=== PATIENT | female | born 1965 | race Caucasian/White ===

== ENCOUNTER 2022-05-22 15:52 | Outpatient (REF) | payer OTHER, SELFPAY ==
--- NOTE | ~2022-05-22 | MM_ITS ---
EXAMINATION: MM SCREENING DIGITAL BREAST TOMOSYNTHESIS, BILATERAL CLINICAL INFORMATION: Screening. Asymptomatic. The lifetime risk of breast cancer based on the Tyrer-Cuzick Model is 6%. COMPARISON: Mammography: 05/27/2020, 03/17/2019, 09/15/2016 TECHNIQUE: Digital breast tomosynthesis is performed in both the craniocaudal and mediolateral oblique views along with computer-aided detection (CAD). Synthesized 2D images are generated from the tomosynthesis. FINDINGS: There are scattered areas of fibroglandular density (ACR BI-RADS breast composition Category b). There are no significant masses, abnormal calcifications, or other abnormalities. Parenchymal pattern is similar to prior studies. There is no developing density or architectural abnormality. The axilla and skin contours are unremarkable. No significant changes. MM/MM tomosynthesis screening BI IMPRESSION: No mammographic evidence of malignancy. ASSESSMENT: BI-RADS 1: Negative RECOMMENDATION: Routine annual mammography screening. This patient's information was entered into a reminder system with a target due date for their next mammogram.
== END 2022-05-22 15:53 | disposition home or self-care (01) ==
LOC: HO.MAMMO 15:52
PROVIDERS: Visit Provider Internal Medicine
DX: Z12.31 Encounter for screening mammogram for malignant neoplasm of breast (principal)
CPT/HCPCS: 77063; 77067

== ENCOUNTER 2023-05-28 15:48 | Outpatient (REF) | payer OTHER, SELFPAY | END 2023-05-28 15:49 | disposition home or self-care (01) | LOC: HO.MAMMO 15:48 | PROVIDERS: PCP Internal Medicine; Visit Provider Internal Medicine | DX: Z12.31 Encounter for screening mammogram for malignant neoplasm of breast (principal) | CPT/HCPCS: 77063; 77067 ==

== ENCOUNTER → 2023-05-28 16:00 | Outpatient (BNV) | payer OTHER, SELFPAY | PROVIDERS: PCP Internal Medicine; Visit Provider Radiology Diagnostic Radiology | DX: Z12.31 Encounter for screening mammogram for malignant neoplasm of breast (principal) | CPT/HCPCS: 77063; 77067 ==

== ENCOUNTER 2024-02-28 15:34 | Outpatient (AMB) | payer OTHER, SELFPAY ==
--- NOTE | 2024-02-28 15:42 | A.OFFPC_ITS ---
Vital Signs 02/28/24 15:44 Height 5 ft 8 in Weight 200 lb 8 oz BMI 30.5 BP 120/64 Blood Pressure Location Lt brachial Position Sitting Pulse 65 Pulse Source Pulse Oximeter Pulse Oximetry (%) 97 Oxygen Delivery Method Room Air Intake Visit Reasons: PE - see comments Intake Note: Patient is here today for a physical. Telephone Order Clerk Room Service Required: No Box Office Manager: Not Required per policy Accompanied by: Self / Same As Patient Allergies No Known Allergies Allergy (Verified 02/29/24 10:31) Medication List - Last Reconciled 02/29/24 by Lan Hooper MD bupropion HCl XL (Wellbutrin XL) 150 mg PO QAM Tobacco use date assessed: 02/28/24 Dental Screening Dental Screen Date: 02/28/24 Did you have a dental visit in the last 12 months?: Yes Did you have a dental problem in the last 6 months where you did not have access to dental care?: No Was dental information given to patient?: Patient has dentist HPI PE - see comments HPI Details 59-year-old female presents to the offic e to establish her care and request a physical. In addition patient is complaining of depression. She has history of depression and was taking Wellbutrin 20 years ago. She has not been on any medications since. Recently she is involved in the care of her sister was been diagnosed with cirrhosis of the liver. Patient reports poor sleep patterns, frequent crying episodes. Patient also has a history of aortic regurgitation. [facility] Medical History (Updated 02/29/24 @ 10:30 by Lan Hooper MD) Endogenous depression Aortic regurgitation Surgical History No pertinent past surgical history Family History Other Mental health disorder Substance use disorder Social History Housing: House Alcohol intake: current Alcohol intake frequency: a few times a month Patient Tobacco Use Status: Former Tobacco user Tobacco use type: Cigarette e-Cigarette/Vaping Use: Never Used Second Hand Smoke Exposure: No service: No Current occupational status: employed Cognitive needs: No Hearing needs: No Vision needs: Yes (Glasses) Questionnaire PHQ-9 Over the last 2 weeks, how often have you been bothered by any of the following problems? 1. Little interest or pleasure in doing things: several days 2. Feeling down, depressed, or hopeless: several days 3. Trouble falling or staying asleep, or sleeping too much: several days 4. Feeling tired or having little energy: nearly every day 5. Poor appetite or overeating: several days 6. Feeling bad about yourself - or that you are a failure or have let yourself or your family down: not at all 7. Trouble concentrating on things, such as reading the newspaper or watching television: several days 8. Moving or speaking so slowly that other people could have noticed. Or the opposite - being so fidgety or restless that you have been moving around a lot more than usual: not at all 9. Thoughts that you would be better off or of hurting yourself in some way: not at all Total score: 8 Depression Screening Interpretation: Positive Depression Screening Follow-up: New Medication prescribed Depression Screening Done: Yes Source: Developed by Drs. Alvin Tran, Kaylee Tran, Kvng Norman and colleagues, with an educational tasneem from [employer]. Thrive Questionnaire Date Thrive assessed: 02/28/24 I am a: Patient What is your living situation today?: I have a steady place to live Within the past 12 months, did the food you bought not last and you didn't have the money to get more?: Never true Within the past 12 months, did you worry whether your food would run out before you got money to buy more?: Never true Do you have trouble paying for medicines?: No Do you have trouble getting transportation to medical appointments?: No Do you have trouble paying your heating and electricity bill?: No Do you have trouble taking care of your child, family member or friend?: No Do you have trouble with day-to-day activities such as bathing, preparing meals, shopping, managing finances, etc.?: No Are you currently unemployed and looking for a job?: No Are you interested in more education?: No Currently or been in a relationship where the following occur: no concerns reported THRIVE Score: 0 AUDIT C Alcohol Use Questionnaire (AUDIT-C) 1. How often do you have a drink containing alcohol?: Monthly or less 2. How many drinks containing alcohol do you have on a typical day when you are drinking?: 1 or 2 Total Score: 1 GERMAN-7 AMB Questionnaire GERMAN-7 Date GERMAN - 7 assessed: 02/28/24 Feeling nervous, anxious, or on edge: 1 = Several days Not being able to stop or control worryin = Not at all Worrying too much about different things: 0 = Not at all Trouble relaxin = Several days Being so restless that it is hard to sit still: 0 = Not at all Becoming easily annoyed or irritable: 1 = Several days Feeling afraid as if something awful might happen: 1 = Several days Total GERMAN-7 score (0-4 normal; 5-9 mild; 10-14 moderate; 15-21 severe): 4 Source: Developed by Drs. Alvin Tran, Kaylee Tran, Kvng Norman and colleagues, with an educational tasneem from [employer]. Physical exam (Primary Care) Vital Signs: Last Vital Signs Pulse 65 02/28/24 15:44 BP 120/64 02/28/24 15:44 Pulse Ox 97 02/28/24 15:44 Oxygen Delivery Method Room Air 02/28/24 15:44 Care Plan Goal for BP management: Blood pressure is in goal. BMI result Body Mass Index 30.5 BMI Assessment/Plan discussion: High (1 lb a week weight loss suggested.) BMI High, discussed plan: lifestyle, weight reduction, dietary and physical activity Tobacco/Smoking Status: Tobacco use Status Tobacco use date assessed 02/28/24 02/28/24 15:51 Patient Tobacco Use Status Former Tobacco user 02/28/24 15:51 Tobacco use type Cigarette 02/28/24 15:51 e-Cigarette/Vaping Use Never Used 02/28/24 15:51 PHQ-9: PHQ-9 Score PHQ-9: Total score 8 02/28/24 15:51 Depression Screening Interpretation: Positive Depression Screening Follow-up: New Medication prescribed Thrive Assessment: Date of Thrive Assessment Date Thrive assessed 02/28/24 02/28/24 15:51 Currently or been in a relationship where the following occur: no concerns reported Const General: cooperative and healthy appearing Nutritional Appearance: well nourished Orientation/consciousness: patient oriented x3 Limitations: no limitations HENMT Head: Yes normal to inspection Eyes General: appearance normal, both eyes and all related structures Neck Neck: Yes normal visual inspection Chest Chest palpation & inspection: normal palpation of entire chest wall Resp Effort & Inspection: normal respiratory effort Neuro General: patient oriented x3 Assessment and Plan Assessment & Plan (1) Endogenous depression: Code(s): F33.2 - Major depressive disorder, recurrent severe without psychotic features Plan: Wellbutrin has been started. Thirty day supply given. Patient would be followed up to monitor her response. (2) Aortic regurgitation: Code(s): I35.1 - Nonrheumatic aortic (valve) insufficiency (3) Annual physical exam: Code(s): Z00.00 - Encounter for general adult medical examination without abnormal findings Plan: Mammogram is being followed by her patient resource specialist. Routine blood work has been ordered. Orders: Orders Basic Metabolic Panel Today F33.2 - Major depressive disorder, recurrent severe without psychotic features Complete Blood Count no Diff Today F33.2 - Major depressive disorder, recurrent severe without psychotic features Lipid Panel Today F33.2 - Major depressive disorder, recurrent severe without psychotic features Liver Panel Today F33.2 - Major depressive disorder, recurrent severe without psychotic features UA and rflx microscopic Today F33.2 - Major depressive disorder, recurrent severe without psychotic features Thyroid Stimulating Hormone Today F33.2 - Major depressive disorder, recurrent severe without psychotic features Medications: New bupropion HCl XL (Wellbutrin XL) 150 mg PO QAM 30 tabs 0RF Coding Level of Care Code New Pt Level 3 (65699) New Pt Prev Care 40-64y(05313) Diagnoses Endogenous depression F33.2 Aortic regurgitation I35.1 Annual physical exam Z00.00
[2024-02-28 15:44] VITALS: BP 120/64; PULSE 65; O2SAT 97; BMI 30.5
== END 2024-02-28 16:47 | disposition home or self-care (01) ==
PROVIDERS: PCP Internal Medicine; Visit Provider Internal Medicine
DX: Z00.00 Encounter for general adult medical examination without abnormal findings (principal); F33.2 Major depressive disorder, recurrent severe without psychotic features; I35.1 Nonrheumatic aortic (valve) insufficiency
CPT/HCPCS: 99213; 99396

== ENCOUNTER 2024-03-24 08:00 | Outpatient (REF) | payer OTHER, SELFPAY ==
[2024-03-24 08:42] LABS: Hematocrit 42.2 % (37.0-47.0); Hemoglobin 14.1 g/dl (12.0-16.0); Mean Corpuscular HGB Conc 33.4 g/dl (31.0-35.0); Mean Corpuscular Hemoglobin 31.9 pg (27.0-33.0); Mean Corpuscular Volume 95.5 fL (80.0-98.0); Mean Platelet Volume 11.5 fL (9.4-12.3); Platelet Count 249 X10*3/uL (160-400); Red Blood Count 4.42 X10*6/uL (4.20-5.50); White Blood Count 5.8 X10*3/uL (4.8-10.8)
[2024-03-24 09:31] LABS: Alanine Aminotransferase 24 U/L (0-31); Albumin Level 4.1 g/dL (3.5-5.0); Alkaline Phosphatase 56 U/L (39-117); Anion Gap 17 (12-20); Aspartate Amino Transferase 25 U/L (5-31); Bilirubin Direct 0.2 mg/dL (0.0-0.5); Bilirubin Total 0.8 mg/dL (0.0-1.0); Blood Urea Nitrogen 28 mg/dL (9-16); Calcium 9.5 mg/dL (8.4-10.2); Carbon Dioxide 21 mmol/L (22-29); Chloride 109 mmol/L (96-108); Cholesterol 200 mg/dL (<200); Estimated Glomerular Filt Rate 56; Glucose Random 97 mg/dL (60-115); HDL Cholesterol 41 mg/dL (>40); LDL Cholesterol Calculated 137 mg/dL (<100); Potassium 4.5 mmol/L (3.3-5.1); Sodium 142 mmol/L (135-145); Total Protein 6.9 g/dL (6.5-8.0); Triglycerides 113 mg/dL (<150)
== END 2024-03-24 08:01 | disposition home or self-care (01) ==
LOC: HO.LAB 08:00
PROVIDERS: PCP Internal Medicine; Visit Provider Internal Medicine
DX: F33.2 Major depressive disorder, recurrent severe without psychotic features (principal)
CPT/HCPCS: 36415; 80048; 80061; 80076; 84443; 85027

== ENCOUNTER 2024-03-27 14:54 | Outpatient (AMB) | payer OTHER, SELFPAY ==
--- NOTE | 2024-03-27 15:21 | A.OFFPC_ITS ---
Vital Signs 03/27/24 15:22 Height 5 ft 8 in Weight 197 lb 8 oz BMI 30.0 BP 102/62 Blood Pressure Location Rt brachial Position Sitting Pulse 66 Pulse Source Pulse Oximeter Pulse Oximetry (%) 96 Oxygen Delivery Method Room Air Intake Visit Reasons: 4 week f/u Intake Note: Patient is here to follow up on Depression. Meter Changes Records Clerk Required: No Aerosol Line Operator: Not Required per policy Accompanied by: Self / Same As Patient Allergies No Known Allergies Allergy (Verified 03/27/24 15:22) Tobacco use date assessed: 03/27/24 Dental Screening Dental Screen Date: 02/28/24 HPI 4 week f/u HPI Details 59-year-old female presents to the [facility] for a follow-up visit. Patient has been taking Wellbutrin for the past month. She reports there is improvement in her symptoms. She feels that her mind is more calm and is able to take reasonable decisions. She does not feel agitated. Her sleep patterns have improved. Able to function at work better. Able to do all activities of daily living and including her interpersonal conversations. [facility] Medical History (Updated 02/29/24 @ 10:30 by Lan Hooper MD) Endogenous depression Aortic regurgitation Surgical History No pertinent past surgical history Family History Other Mental health disorder Substance use disorder Social History Housing: House Alcohol intake: current Alcohol intake frequency: a few times a month Patient Tobacco Use Status: Former Tobacco user Tobacco use type: Cigarette e-Cigarette/Vaping Use: Never Used Second Hand Smoke Exposure: No service: No Current occupational status: employed Cognitive needs: No Hearing needs: No Vision needs: Yes (Glasses) Questionnaire PHQ-9 Over the last 2 weeks, how often have you been bothered by any of the following problems? 1. Little interest or pleasure in doing things: not at all 2. Feeling down, depressed, or hopeless: several days (once a week) 3. Trouble falling or staying asleep, or sleeping too much: not at all 4. Feeling tired or having little energy: several days 5. Poor appetite or overeating: not at all 6. Feeling bad about yourself - or that you are a failure or have let yourself or your family down: not at all 7. Trouble concentrating on things, such as reading the newspaper or watching television: not at all 8. Moving or speaking so slowly that other people could have noticed. Or the opposite - being so fidgety or restless that you have been moving around a lot more than usual: not at all 9. Thoughts that you would be better off or of hurting yourself in some way: not at all Total score: 2 Depression Screening Interpretation: Positive Depression Screening Follow-up: Existing condition and In treatment Depression Screening Done: Yes Source: Developed by Drs. Alvin Tran, Kvng Candelaria and colleagues, with an educational tasneem from [employer]. Thrive Questionnaire Date Thrive assessed: 02/28/24 GERMAN-7 AMB Questionnaire GERMAN-7 Date GERMAN - 7 assessed: 03/27/24 Feeling nervous, anxious, or on edge: 1 = Several days (once or twice a week) Not being able to stop or control worryin = Not at all Worrying too much about different things: 0 = Not at all Trouble relaxin = Not at all Being so restless that it is hard to sit still: 0 = Not at all Becoming easily annoyed or irritable: 1 = Several days Feeling afraid as if something awful might happen: 0 = Not at all Total GERMAN-7 score (0-4 normal; 5-9 mild; 10-14 moderate; 15-21 severe): 2 Source: Developed by Drs. Alvin Tarn, Kvng Candelaria and colleagues, with an educational tasneem from [employer]. Physical exam (Primary Care) Vital Signs: Last Vital Signs Pulse 66 03/27/24 15:22 BP 102/62 03/27/24 15:22 Pulse Ox 96 03/27/24 15:22 Oxygen Delivery Method Room Air 03/27/24 15:22 Care Plan Goal for BP management: Blood pressure is stable. BMI result Body Mass Index 30.0 Tobacco/Smoking Status: Tobacco use Status Tobacco use date assessed 03/27/24 03/27/24 15:28 Patient Tobacco Use Status Former Tobacco user 03/27/24 15:28 Tobacco use type Cigarette 03/27/24 15:28 e-Cigarette/Vaping Use Never Used 03/27/24 15:28 PHQ-9: PHQ-9 Score PHQ-9: Total score 2 03/27/24 15:28 Depression Screening Interpretation: Positive Depression Screening Follow-up: Existing condition and In treatment Thrive Assessment: Date of Thrive Assessment Date Thrive assessed 02/28/24 03/27/24 15:28 Const General: cooperative and healthy appearing Nutritional Appearance: well nourished Orientation/consciousness: patient oriented x3 Limitations: no limitations HENMT Head: Yes normal to inspection Eyes General: appearance normal, both eyes and all related structures Neck Neck: Yes normal visual inspection Chest Chest palpation & inspection: normal palpation of entire chest wall Resp Effort & Inspection: normal respiratory effort Neuro General: patient oriented x3 Assessment and Plan Assessment & Plan (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 It is improving her symptoms. I encouraged her to continue taking the medication and be compliant with it. Patient was advised to check her daily weights and if there is a weight gain of more than 5 lb, to call the office. Prescription for 90 days with 1 refill has been sent. Patient at this point has declined a therapist. Medications: Refilled bupropion HCl XL (Wellbutrin XL) 150 mg PO QAM 90 tabs 1RF Coding Level of Care Code Est Pt Level 4 (51014) Complex EM visit Add On G2211 Diagnoses Endogenous depression F33.2
[2024-03-27 15:22] VITALS: BP 102/62; PULSE 66; O2SAT 96
== END 2024-03-27 15:55 | disposition home or self-care (01) ==
PROVIDERS: PCP Internal Medicine; Visit Provider Internal Medicine
DX: F33.2 Major depressive disorder, recurrent severe without psychotic features (principal)
CPT/HCPCS: 99214; G2211

== ENCOUNTER → 2024-06-13 14:15 | Outpatient (BNV) | payer OTHER, SELFPAY | PROVIDERS: PCP Internal Medicine; Visit Provider Internal Medicine | DX: Z12.31 Encounter for screening mammogram for malignant neoplasm of breast (principal) | CPT/HCPCS: 77063; 77067 ==

== ENCOUNTER 2024-06-13 14:19 | Outpatient (REF) | payer OTHER, SELFPAY ==
--- NOTE | ~2024-06-13 | MM_ITS ---
EXAMINATION: MM SCREENING DIGITAL BREAST TOMOSYNTHESIS, BILATERAL CLINICAL INFORMATION: Screening. Asymptomatic. COMPARISON: Mammography: Comparison is made with available priors TECHNIQUE: Digital breast mammography with tomosynthesis is performed in both the craniocaudal and mediolateral oblique views along with computer-aided detection (CAD). FINDINGS: There are scattered areas of fibroglandular density (ACR BI-RADS breast composition Category b). Right breast postsurgical changes are stable. There are no significant masses, abnormal calcifications, or other abnormalities. MM/MM tomosynthesis screening BI IMPRESSION: No mammographic evidence of malignancy. ASSESSMENT: BI-RADS BI-RADS 2 - Benign Findings RECOMMENDATION: Routine annual mammography screening. 1 year F/U This examination should not preclude the clinical evaluation of a suspicious palpable abnormality. This patient's information was entered into a reminder system with a target due date for their next mammogram. Electronically signed by: Jaimie Suazo DO 07/05/2024 10:38 PM EDT
== END 2024-06-13 14:20 | disposition home or self-care (01) ==
LOC: HO.MAMMO 14:19
PROVIDERS: PCP Internal Medicine; Visit Provider Internal Medicine
DX: Z12.31 Encounter for screening mammogram for malignant neoplasm of breast (principal)
CPT/HCPCS: 77063; 77067

== ENCOUNTER 2024-10-13 09:38 | Outpatient (AMB) | payer OTHER, SELFPAY ==
--- NOTE | 2024-10-13 09:44 | MHC.PC.OV ---
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 per policy Accompanied by: Self / Same As Patient Allergies No Known Allergies Allergy (Verified 10/13/24 10:18) Medication List - Last Reconciled 10/13/24 by Lissette Cruz PA-C bupropion HCl XL (Wellbutrin XL) 150 mg PO QAM Tobacco use date assessed: 10/13/24 Dental Screening Dental Screen Date: 02/28/24 [facility] Medical History Endogenous depression Aortic regurgitation Surgical History No pertinent past surgical history Family History Other Mental health disorder Substance use disorder Social History Housing: House Alcohol intake: current Alcohol intake frequency: a few times a month Patient Tobacco Use Status: Former Tobacco user Tobacco use type: Cigarette e-Cigarette/Vaping Use: Never Used Second Hand Smoke Exposure: Yes service: No Current occupational status: employed Cognitive needs: No Hearing needs: No Vision needs: Yes (Glasses) Questionnaire Thrive Questionnaire Date Thrive assessed: 02/28/24 GERMAN-7 AMB Questionnaire GERMAN-7 Date GERMAN - 7 assessed: 03/27/24 Source: Developed by Drs. Alvin Tran, Kaylee Tran, Kvng Norman and colleagues, with an educational tasneem from [employer] system. Physical exam (Primary Care) Vital Signs: Last Vital Signs Pulse 68 10/13/24 09:45 BP 132/76 10/13/24 09:45 Pulse Ox 95 10/13/24 09:45 Oxygen Delivery Method Room Air 10/13/24 09:45 BMI result Body Mass Index 31.4 Tobacco/Smoking Status: Tobacco use Status Tobacco use date assessed 10/13/24 10/13/24 09:49 Patient Tobacco Use Status Former Tobacco user 10/13/24 09:49 Tobacco use type Cigarette 10/13/24 09:49 e-Cigarette/Vaping Use Never Used 10/13/24 09:49 Thrive Assessment: Date of Thrive Assessment Date Thrive assessed 02/28/24 10/13/24 09:49 Office Procedures Flu Questionnaire Does the patient have a severe egg allergy?: No Does the patient have severe life threatening allergies?: No Does the patient have a fever or illness today?: No Has the patient ever had Guillain-[place] Syndrome?: No Has the patient ever had any past reaction to a flu shot?: No Immunizations Fluarix Triv [id number] (PF) 45 mcg (15 mcg x 3)/0.5 mL IM syringe Performing Provider: Lissette Cruz PA-C [place] [facility] [place] [facility] Administered by: Kacie Velasco LPN on 10/13/24 10:03 Dose Route Admin Location Dispensed Lot Number Expiration Date 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 0.5 mL IM Right Deltoid 0.5 mL [id number] 04/13/25 [id number] [employer] VIS Given Date VIS Provided VIS Publication Date 10/13/24 Single Vaccine 21 Eligibility Eligibility Date Funding Source Not [facility] Eligible 10/13/24 Private Coding Level of Care Code Est Pt Level 4 (30849) Complex EM visit Add On G2211 Diagnoses Follow-up exam, 3-6 months since previous exam Z09 Aortic regurgitation I35.1 Endogenous depression F33.2 Colon cancer screening Z12.11 Influenza vaccine administered Z23 Assessment & Plan Assessment & Plan (1) Follow-up exam, 3-6 months since previous exam: Code(s): Z09 - Encounter for follow-up examination after completed treatment for conditions other than malignant neoplasm Category: Medical (2) Aortic regurgitation: Code(s): I35.1 - Nonrheumatic aortic (valve) insufficiency Category: Medical (3) Endogenous depression: Code(s): F33.2 - Major depressive disorder, recurrent severe without psychotic features Category: Medical (4) Colon cancer screening: Code(s): Z12.11 - Encounter for screening for malignant neoplasm of colon Category: Medical (5) Influenza vaccine administered: Code(s): Z23 - Encounter for immunization Category: Medical Plan Plan - Refer the patient to cardiology for evaluation and management of aortic regurgitation and palpitations. - Refer the patient to gastroenterology for colon cancer screening due to family history. - Recommended fasting laboratory work to assess cholesterol, thyroid function, vitamin D, folate, testosterone, kidney function, and diabetes markers. - Administer influenza vaccination at this appointment. Orders: Orders Influenza [id number] Immunization Today Z23 - Encounter for immunization Complete Blood Count Auto Diff Today Z09 - Encounter for follow-up examination after completed treatment for conditions other than malignant neoplasm Comprehensive [place]. Panel Fast Today F33.2 - Major depressive disorder, recurrent severe without psychotic features, I35.1 - Nonrheumatic aortic (valve) insufficiency, Z09 - Encounter for follow-up examination after completed treatment for conditions other than malignant neoplasm Magnesium Today F33.2 - Major depressive disorder, recurrent severe without psychotic features, I35.1 - Nonrheumatic aortic (valve) insufficiency, Z09 - Encounter for follow-up examination after completed treatment for conditions other than malignant neoplasm, Z12.11 - Encounter for screening for malignant neoplasm of colon Liver Panel Today F33.2 - Major depressive disorder, recurrent severe without psychotic features, I35.1 - Nonrheumatic aortic (valve) insufficiency, Z09 - Encounter for follow-up examination after completed treatment for conditions other than malignant neoplasm, Z12.11 - Encounter for screening for malignant neoplasm of colon Lipid Panel Today F33.2 - Major depressive disorder, recurrent severe without psychotic features, I35.1 - Nonrheumatic aortic (valve) insufficiency, Z09 - Encounter for follow-up examination after completed treatment for conditions other than malignant neoplasm, Z12.11 - Encounter for screening for malignant neoplasm of colon Hemoglobin A1c Today F33.2 - Major depressive disorder, recurrent severe without psychotic features, I35.1 - Nonrheumatic aortic (valve) insufficiency, Z09 - Encounter for follow-up examination after completed treatment for conditions other than malignant neoplasm, Z12.11 - Encounter for screening for malignant neoplasm of colon TSH reflex Free T4 Today F33.2 - Major depressive disorder, recurrent severe without psychotic features, I35.1 - Nonrheumatic aortic (valve) insufficiency, Z09 - Encounter for follow-up examination after completed treatment for conditions other than malignant neoplasm, Z12.11 - Encounter for screening for malignant neoplasm of colon Vitamin B12 and Folate Today F33.2 - Major depressive disorder, recurrent severe without psychotic features, I35.1 - Nonrheumatic aortic (valve) insufficiency, Z09 - Encounter for follow-up examination after completed treatment for conditions other than malignant neoplasm, Z12.11 - Encounter for screening for malignant neoplasm of colon Vitamin D 25-OH Total Today F33.2 - Major depressive disorder, recurrent severe without psychotic features, I35.1 - Nonrheumatic aortic (valve) insufficiency, Z09 - Encounter for follow-up examination after completed treatment for conditions other than malignant neoplasm, Z12.11 - Encounter for screening for malignant neoplasm of colon Referrals Cardiology Referral I35.1 - Nonrheumatic aortic (valve) insufficiency Gastroenterology Referral Z09 - Encounter for follow-up examination after completed treatment for conditions other than malignant neoplasm, Z12.11 - Encounter for screening for malignant neoplasm of colon Medications: Refilled bupropion HCl XL (Wellbutrin XL) 150 mg PO QAM 90 tabs 1RF Patient Instructions: Patient Instructions - Follow up with referred cardiologists and gastroenterologists as soon as possible. - Return for laboratory work on an empty stomach; avoid food and only drink water or black coffee. - Schedule and receive your influenza vaccination and COVID-19 booster. - Increase physical activity gradually to address sedentary lifestyle concerns. - Report any changes in symptoms or new health concerns promptly. Scribe Plan - Not visible on output: History of Present Illness The patient is a 59-year-old female presenting for a Six-month follow-up. She has a history of depression and aortic regurgitation. She is reporting with concerns of irregular heartbeats and a desire for referral to a fur blowing machine operator. She has a known history of aortic regurgitation and reports that her heartbeats have become erratic occasionally. She attributes this to stress and notes occurrences of fast episodes once a month. Her last visit to a fur blowing machine operator was over a year ago at a [facility] fur blowing machine operator in [place]. She also reports ongoing tiredness and shortness of breath since COVID-19. Her past mammogram in May was normal, and she is scheduled for a gynecological appointment in October. There is a family history of colon cancer in her biological brother. She has not had a COVID-19 booster recently. 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 - Housing: Lives with others, not alone. - Substance Use: Non-smoker, non-drinker, and no drug use mentioned. - Exercise: Describes self as extremely sedentary, and acknowledges need for change. Review of Systems - Cardiovascular: Reports palpitations; Denies chest pain. - Respiratory: Reports shortness of breath. - General: Reports tiredness; Denies weight gain over 10 pounds in one month. - Neurological: Denies dizziness or headaches. - Musculoskeletal: Denies leg swelling or tenderness. Physical Exam Appearance: Alert. Oriented X3. No acute distress. Head: Normal external exam. Normocephalic. Atraumatic. Eyes: Pupils are equal, round, and reactive to light. Extraocular movements intact. Conjunctiva and sclera normal. Eyelids normal. Ears: External auditory canal normal. Tympanic membranes normal. Throat: Pharynx normal. Uvula midline. Moist mucous membranes. Neck: Normal inspection. Neck supple. Full range of motion. No adenopathy. Thyroid Normal. No meningeal signs. No neck mass noted. Cardiovascular: Irregular heart rate noted. Heart sound normal. No murmurs noted. Pulses normal throughout. Respiratory: No respiratory distress. Painless inspiration. Breath sounds normal. No wheezes/rales/rhonchi noted. Chest nontender. No accessory muscle usage noted or decreased air movement noted. Abdomen: Soft and nontender. No distention noted. Back: No costovertebral angle tenderness. Full range of motion noted. Skin: Skin warm and dry. Normal skin color. Normal skin turgor. No rashes/lesions/lacerations noted. Extremities: No lower extremity edema. Extremities exhibit normal range of motion. Extremities nontender. Neuro: Oriented X 3. No motor deficit. No sensory deficit. Discussion Notes I discussed with the patient her symptoms of palpitations and the importance of managing her heart condition with regular cardiology follow-ups. Given her family history of colon cancer, I emphasized the necessity of gastroenterology consultation for timely colon screening. The benefits and need for regular health checks, including cholesterol and thyroid panels, were explained, along with the requirement for fasting before tests. The patient consented to undergoing lab work on a subsequent visit. Additionally, vaccine schedules, including influenza and COVID-19 boosters, were highlighted as part of her preventative care measures. Patient was informed and verbally consented to the use of an ambient scribe for clinic note documentation during this visit.
[2024-10-13 09:45] VITALS: BP 132/76; PULSE 68; O2SAT 95; BMI 31.4
== END 2024-10-13 10:05 | disposition home or self-care (01) ==
PROVIDERS: PCP Internal Medicine; Visit Provider Physician Assistant Medical
DX: Z09 Encounter for follow-up examination after completed treatment for conditions other than malignant neoplasm (principal); I35.1 Nonrheumatic aortic (valve) insufficiency; F33.2 Major depressive disorder, recurrent severe without psychotic features; Z12.11 Encounter for screening for malignant neoplasm of colon; Z23 Encounter for immunization

== ENCOUNTER → 2024-10-13 09:38 | Outpatient (BNVA) | payer OTHER, SELFPAY | PROVIDERS: PCP Internal Medicine; Visit Provider Physician Assistant Medical | DX: Z09 Encounter for follow-up examination after completed treatment for conditions other than malignant neoplasm (principal); Z23 Encounter for immunization; I35.1 Nonrheumatic aortic (valve) insufficiency; F33.2 Major depressive disorder, recurrent severe without psychotic features | CPT/HCPCS: 90471; 90656 ==

== ENCOUNTER 2025-02-10 13:32 | Outpatient (AMB) | payer OTHER, SELFPAY ==
[2025-02-10 13:40] VITALS: BP 132/72; BMI 31.3
--- NOTE | 2025-02-10 13:40 | A.OFFVIS_ITS ---
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 Her last Pap smear was in 2019. She does not have any particular expressive therapist concerns though she is concerned that she is feeling that she might have a little bit of prolapse of organs she does have bad hemorrhoids as well which are problematic she had internal ones removed sometime ago and it was tortuous so she is not eager for surgery. 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 She wishes she could get more exercise but it is challenging with all of her demands. She has a cardiac appointment coming up and she is up-to-date on her mammograms., She has no concerns about infections. During exam and on questioning she does note that she has some irritation in her groin which is aggravated by the edges of her underwear and does itch. [facility] Medical History (Updated 02/10/25 @ 14:45 by Silvana Rob CNM) History of Papanicolaou smear of cervix (~06/09/19) History of mammogram (~06/13/24) Endogenous depression Aortic regurgitation Surgical History (Updated 10/13/24 @ 10:20 by Lissette Cruz PA-C) History of colonoscopy (~08/21/19) No pertinent past surgical history Family History Other Mental health disorder Substance use disorder Social History Housing: House Alcohol intake: current Alcohol intake frequency: a few times a month Patient Tobacco Use Status: Former Tobacco user Tobacco use type: Cigarette e-Cigarette/Vaping Use: Never Used Second Hand Smoke Exposure: Yes service: No Current occupational status: employed Cognitive needs: No Hearing needs: No Vision needs: Yes (Glasses) Female Reproductive History Menstrual Age of Menarche: 14 Menopause type: natural Age of menopause: 48 Total pregnancies: 2 Full term: 2 Number of Living Children: 2 Physical Exam Vital Signs: Last Vital Signs BP 132/72 02/10/25 13:40 BMI result Body Mass Index 31.3 Const General: healthy appearing, comfortable, no acute distress, well developed and alert Nutritional Appearance: average body habitus Orientation/consciousness: patient oriented x3 Limitations: no limitations HEENT Head: Yes normocephalic Neck Neck: Yes normal visual inspection Chest Chest palpation & inspection: normal inspection of the chest Breast/axilla inspection: normal inspection of the breasts and normal inspection of the axillae Breast/axilla palpation: normal palpation of the breasts and normal palpation of the axillae Resp Effort & Inspection: normal respiratory effort GI Inspection: Yes normal to inspection, No Abdominal wall edema and No distended Palpation (GI): Soft to palpation and nontender Other: External exam within normal limits postmenopausal atrophic changes evident external hemorrhoids evident but not inflamed but enlarged. There is some pink irritation in groin areas, no rash Anterior vaginal wall and posterior vaginal wall due prolapse down slightly cervix and uterus are not prolapsed fair tone with Kegel which increased with each repetition of her Kegel contraction. Cervix multiparous long close thick mobile nontender uterus nontender nonenlarged adnexa nontender nonenlarged. General: Yes bladder normal to palpation External Female Exam: normal external appearance and normal appearance of the urethra Speculum Exam - Vagina: normal appearance of the vagina, normal palpation and normal vaginal discharge Speculum Exam - Cervix: normal appearance of the cervix, normal palpation and nontender Bimanual exam- vagina & uterus: normal bimanual exam, normal palpation, uterine size normal, bladder normal to palpation, consistency normal, normal palpation, uterine mobility normal, uterine shape normal, No Cervical tenderness present, non-tender and no cervical motion tenderness Bimanual Exam- Adnexa, other: normal adnexae, no masses, normal and No adnexal tenderness Neuro General: patient oriented x3 Results Reviewed Results Reviewed: Pap from 2019 in system Assessment & Plan Assessment & Plan (1) Well woman exam with routine gynecological exam: Code(s): Z01.419 - Encounter for gynecological examination (general) (routine) without abnormal findings Category: Medical (2) Cervical cancer screening: Code(s): Z12.4 - Encounter for screening for malignant neoplasm of cervix Category: Medical (3) Pelvic floor weakness: Comment: Encouraged more frequent Kegel's and more frequent voiding. information given about pelvic floor therapy if she desires.... Code(s): N81.89 - Other female genital prolapse Category: Medical Plan -----Discussed in this visit the following: healthy balanced diet, regular and consistent exercise, getting recommended health screens, doing the best she can for her particular health concerns, kegel exercises, pap smear screening and followup recommendations, mammography screening and SBE, normal changes in cycles in her life stage--- . She is up-to-date on her mammograms and is all set up for her future follow- up with her all of her other care provider's. She is under a lot of stress with 1 family member particular and is working to set limits. She would like to go walking more and lose weight. Discussed possible strategies for adding in more exercise and walking into her life which is admittedly hard to do. she has a walking pad which she uses regularly. Information on Kegel's given, and encouraged trying to find ways to sneak them into her day more often and try to hold the contraction longer and stronger each time. Also discussed the importance of trying to remember to void when there is an opportunity, and not hold her urine too long. Offered PT referral but she has a busy schedule for now but I gave her the information should she desire referral. Rx sent for betamethasone clotrimazole cream to use sparingly in groin area for short periods of time up to 2 weeks, ( to avoid thinning of the skin with prolonged use.) Orders: Orders Pap Smear Today Z01.419 - Encounter for gynecological examination (general) (routine) without abnormal findings Medications: New clotrimazole-betamethasone 1-0.05 % Use sparingly externally only and for limited episodes of use. 1 appl topical BID 2 weeks 45 grams 4RF Coding Level of Care Code New Pt Prev Care 40-64y(52842) Diagnoses Well woman exam with routine gynecological exam Z01.419 Cervical cancer screening Z12.4 Pelvic floor weakness N81.89
== END 2025-02-10 14:58 | disposition home or self-care (01) ==
LOC: HO.HWSM 13:32
PROVIDERS: PCP Internal Medicine; Visit Provider Advanced Practice Midwife
DX: Z01.419 Encounter for gynecological examination (general) (routine) without abnormal findings (principal); N81.89 Other female genital prolapse
CPT/HCPCS: 99386; 99459

== ENCOUNTER 2025-02-10 13:32 | Outpatient (REF) | payer OTHER, SELFPAY ==
[2025-02-13 13:28] LABS: HPV Genotype 16 Negative (Negative); HPV Genotype 18 Negative (Negative); HPV High Risk Negative (Negative)
== END 2025-02-10 13:33 | disposition home or self-care (01) ==
LOC: HO.LNP 13:32
PROVIDERS: PCP Internal Medicine; Visit Provider Advanced Practice Midwife
DX: Z01.419 Encounter for gynecological examination (general) (routine) without abnormal findings (principal); Z11.51 Encounter for screening for human papillomavirus (HPV)
CPT/HCPCS: 87626; 88175

== ENCOUNTER 2025-03-05 12:51 | Outpatient (AMB) | payer OTHER, SELFPAY ==
[2025-03-05 12:54] VITALS: BP 110/70; PULSE 68; BMI 31.5
--- NOTE | 2025-03-05 12:54 | A.OFFVIS_ITS ---
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 She is a pleasant 60-year-old female with prior history of bicuspid aortic valve with moderate aortic regurgitation by echocardiogram in March of 2022 as well as mildly enlarged thoracic aorta. Patient has been followed regularly through an outside cardiology group and now has been referred here for consultation to be followed here at [facility] due to convenience. Patient says over the last year she has multiple episodes of prolonged palpitations. The symptoms happen at various times with sporadically. The symptoms happen also after some consult that she likes to visit. She says she has lot of stress related to her personal life as well as work. She actually has her smart watch EKG recordings which I reviewed and are consistent with atrial fibrillation with heart rate up to 130 beats per minute. The symptoms last up to 30 minutes. She has not had any bleeding issues or neurologic events. She denies any symptoms of exertional chest pain or shortness of breath. She denies any orthopnea, PND, leg edema. Denies any lightheadedness, syncope. During these episodes of palpitation she does have shortness of breath in his highly symptomatic. She does drink a lot of caffeine. She does not drink heavily in alcohol but during the consult she might have had couple of beers and not sure if this could have contributed to it. She has not had any recent blood work. She comes for consultation and treatment plan. [facility] Medical History Ascending aorta enlargement History of Papanicolaou smear of cervix (~06/09/19) History of mammogram (~06/13/24) Endogenous depression Aortic regurgitation Surgical History History of colonoscopy (~08/21/19) No pertinent past surgical history Family History Other Mental health disorder Substance use disorder Social History Housing: House Alcohol intake: current Alcohol intake frequency: a few times a month Patient Tobacco Use Status: Former Tobacco user Tobacco use type: Cigarette e-Cigarette/Vaping Use: Never Used Second Hand Smoke Exposure: Yes service: No Current occupational status: employed Cognitive needs: No Hearing needs: No Vision needs: Yes (Glasses) Female Reproductive History Menstrual Age of Menarche: 14 Review of Systems Const Denies chills, Denies daytime sleepiness, Denies fatigue, Denies fever(s), Denies frequent falls, Denies poor appetite, Denies snoring, Denies stops br eathing during sleep, Denies weakness, Denies weight gain and Denies weight loss Eyes Denies loss of vision ENT Denies dizziness and Denies hearing loss Card Denies chest pain, Reports rapid heart rate, Denies claudication, Denies leg edema, Denies lightheadedness, Reports palpitations (With shortness of breath), Denies dyspnea, Denies dyspnea on exertion and Denies orthopnea Resp Denies cough, Denies excessive phlegm production, Denies dyspnea, Denies dyspnea on exertion, Denies snoring and Denies wheezing GI Denies abdominal pain, Denies hematochezia, Denies change in bowel habits, Denies nausea and Denies vomiting Denies urinary frequency and Denies dysuria Musc Denies arthralgias, Denies muscle weakness, Denies numbness and Denies other (frequent falls) Skin/Breast Denies nail changes and Denies rash Neuro Denies Abnormal speech present, Denies dizziness, Denies frequent falls, Denies loss of vision, Denies memory loss, Denies numbness and Denies weakness Psych Denies depression and Denies memory loss Endo Denies fatigue and Reports palpitations (With shortness of breath) Greg/Lymph Reports easy bruising and Reports other (anemia) Aller/Immun Denies wheezing Physical Exam Vital Signs: Last Vital Signs Pulse 68 05/22/25 12:54 BP 110/70 03/05/25 12:54 BMI result Body Mass Index 31.5 Const General: cooperative, comfortable, no acute distress, alert, awake and well groomed Nutritional Appearance: obese Orientation/consciousness: patient oriented x3 Limitations: no limitations HEENT Head: Yes normocephalic and Yes atraumatic Neck Neck: Yes trachea midline, Yes supple and Yes no JVD Resp Effort & Inspection: normal respiratory effort Auscultation: clear to auscultation bilaterally Cardio Jugular venous distension: no JVD Rate: regular rate Rhythm: regular rhythm Heart sounds: S1 normal heart sound present, S2 normal heart sound present, no click, no gallops, no murmurs and no rubs GI Auscultation: normal bowel sounds Skin General skin exam: no rashes or lesions noted Neuro General: patient oriented x3 and no focal motor deficits Speech: No Abnormal speech present Extrem General: Yes no clubbing, cyanosis or edema Psych Appearance: grossly normal Office Procedures EKG Details: EKG shows normal sinus rhythm normal EKG [id number]-[id number], Complete Assessment & Plan Assessment & Plan (1) Aortic regurgitation: Comment: Secondary to bicuspid aortic valve Code(s): I35.1 - Nonrheumatic aortic (valve) insufficiency Category: Medical Plan: Moderate aortic regurgitation although clinically the is not very significant as well as mild ascending aortic enlargement related to bicuspid aortic valve. We discussed about pathophysiology and incidence of bicuspid aortic valve. I have strongly recommended her to have her kids be screened for bicuspid aortic valve. Currently the aortic regurgitation does not appear to be severe. Will follow- up echocardiogram near future. Long-term consequences of aortic regurgitation especially severe were discussed with her. She understands and agrees. I have advised to follow up after the same. (2) Paroxysmal atrial fibrillation: Code(s): I48.0 - Paroxysmal atrial fibrillation Category: Medical Plan: Newly detected and symptomatic atrial fibrillation. Unclear etiology. Needs further workup. Will obtain blood work today including TSH. Will also obtain a home sleep study to rule out sleep apnea. Echocardiogram as above to evaluate for biatrial chamber size. Encouraged to reduce her stimulant use especially caffeine and avoid alcohol use altogether. Will start her on metoprolol to reduce cardiac excitability. Also prescribe her oral anticoagulation therapy with Eliquis due to her underlying structural heart issues. This was discussed with her. She understands in his agreeable with management plan. Further treatment including ablation and antiarrhythmic drug use was discussed and will follow-up after response to currently implemented therapy. She understands agrees. Stress mitigation strategies were discussed. Will follow up in the clinic in 6 weeks time, sooner p.r.n.. Thank you for allowing me to partake in her care Orders: Orders CA echo transthoracic complete Today I35.1 - Nonrheumatic aortic (valve) insufficiency B Type Natriuretic Peptide Today I48.0 - Paroxysmal atrial fibrillation Complete Blood Count no Diff Today I48.0 - Paroxysmal atrial fibrillation CA echo transthoracic complete Today I35.1 - Nonrheumatic aortic (valve) insufficiency Magnesium Today I48.0 - Paroxysmal atrial fibrillation Basic Metabolic Panel Today I48.0 - Paroxysmal atrial fibrillation TSH reflex Free T4 Today I48.0 - Paroxysmal atrial fibrillation Medications: New metoprolol succinate ER (Toprol XL) 25 mg PO DAILY 30 tabs 5RF I48.0 - Paroxysmal atrial fibrillation apixaban (Eliquis) 5 mg PO BID 60 tabs 4RF I48.0 - Paroxysmal atrial fibrillation Coding Level of Care Code New Pt Level 4 (79164) Complex EM visit Add On G2211 Diagnoses Aortic regurgitation I35.1 Paroxysmal atrial fibrillation I48.0 CPT Codes EKG - CPT: 19683-[id number], Complete ([id number])
== END 2025-03-05 13:25 | disposition home or self-care (01) ==
LOC: HO.HCS 12:51
PROVIDERS: PCP Internal Medicine; Visit Provider Internal Medicine Cardiovascular Disease
DX: I35.1 Nonrheumatic aortic (valve) insufficiency (principal); I48.0 Paroxysmal atrial fibrillation
CPT/HCPCS: 93010; 99204

== ENCOUNTER → 2025-03-05 12:51 | Outpatient (BNVA) | payer OTHER, SELFPAY | PROVIDERS: PCP Internal Medicine; Visit Provider Internal Medicine Cardiovascular Disease | DX: I48.0 Paroxysmal atrial fibrillation (principal) | CPT/HCPCS: 93005 ==

== ENCOUNTER 2025-03-12 14:24 | Outpatient (AMB) | payer OTHER, SELFPAY ==
--- NOTE | 2025-03-12 14:40 | A.OFFPC_ITS ---
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 Accompanied by: Self / Same As Patient Allergies No Known Allergies Allergy (Verified 03/12/25 14:52) Medication List - Last Reconciled 03/12/25 by ELLA Hartman-Kelsey apixaban (Eliquis) 5 mg PO BID bupropion HCl XL (Wellbutrin XL) 150 mg PO QAM clotrimazole-betamethasone 1-0.05 % 1 appl topical BID 2 weeks metoprolol succinate ER (Toprol XL) 25 mg PO DAILY Tobacco use date assessed: 03/12/25 Dental Screening Dental Screen Date: 03/12/25 Did you have a dental visit in the last 12 months?: Yes Did you have a dental problem in the last 6 months where you did not have access to dental care?: No Was dental information given to patient?: Patient has dentist HPI annual exam HPI Details The patient is a 60-year-old female presenting for an annual exam and follow-up for cardiac issues. She has been diagnosed with aortic regurgitation and atrial fibrillation. Last seen by cardiology in February 2025, she was advised to have a repeat echocardiogram and further tests for newly detected atrial fibrillation. Dr. Petersen recommended avoiding caffeine and alcohol and initiated treatment with metoprolol and Eliquis. The patient has been compliant with medication, reporting no adverse effects. Her blood pressure has been historically low, and she was advised to increase water intake and monitor it closely. The patient's cholesterol levels have been previously elevated, and she has agreed to start rosuvastatin to manage her lipid levels. She intends to complete the ordered blood work soon. Additionally, she has a history of routine mammograms and a colonoscopy planned for May. 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 - Family Status: Has children; son and d sybilhter, with concerns of cardiac issues on the 's side. - Substance Use: Advised to avoid caffei ne and alcohol. - Activity Level: Engages in routine act ivities, including work-related visits. PFS Medical History (Updated 03/12/25 @ 15:52 by Lissette Cruz PA-C) Annual physical exam Class 1 obesity with body mass index (BMI) of 31.0 to 31.9 in adult Pure hypercholesterolemia, unspecified Hyperlipidemia LDL goal <100 Ascending aorta enlargement History of Papanicolaou smear of cervix (~02/10/25) History of mammogram (~06/13/24) Endogenous depression Aortic regurgitation Surgical History History of colonoscopy (~08/21/19) No pertinent past surgical history Family History Other Mental health disorder Substance use disorder Social History Housing: House Alcohol intake: current Alcohol intake frequency: a few times a month Patient Tobacco Use Status: Former Tobacco user Tobacco use type: Cigarette e-Cigarette/Vaping Use: Never Used Second Hand Smoke Exposure: Yes service: No Current occupational status: employed Cognitive needs: No Hearing needs: No Vision needs: Yes (Glasses) Female Reproductive History Menstrual Age of Menarche: 14 Questionnaire PHQ-9 Over the last 2 weeks, how often have you been bothered by any of the following problems? 1. Little interest or pleasure in doing things: not at all 2. Feeling down, depressed, or hopeless: not at all 3. Trouble falling or staying asleep, or sleeping too much: not at all 4. Feeling tired or having little energy: not at all 5. Poor appetite or overeating: not at all 6. Feeling bad about yourself - or that you are a failure or have let yourself or your family down: not at all 7. Trouble concentrating on things, such as reading the newspaper or watching television: not at all 8. Moving or speaking so slowly that other people could have noticed. Or the opposite - being so fidgety or restless that you have been moving around a lot more than usual: not at all 9. Thoughts that you would be better off or of hurting yourself in some way: not at all Total score: 0 Depression Screening Interpretation: Negative Depression Screening Done: Yes 50157 - PHQ-9 Billing: Yes Source: Developed by Drs. Alvin Tran, Kaylee Tran, Kvng Norman and colleagues, with an educational tasneem from [place]. Thrive Questionnaire Date Thrive assessed: 03/12/25 I am a: Patient What is your living situation today?: I have a steady place to live Within the past 12 months, did the food you bought not last and you didn't have the money to get more?: Never true Within the past 12 months, did you worry whether your food would run out before you got money to buy more?: Never true Do you have trouble paying for medicines?: No Do you have trouble getting transportation to medical appointments?: No Do you have trouble paying your heating and electricity bill?: No Do you have trouble taking care of your child, family member or friend?: No Do you have trouble with day-to-day activities such as bathing, preparing meals, shopping, managing finances, etc.?: No Are you currently unemployed and looking for a job?: No Are you interested in more education?: No Please select the resources that you would like help with: None Currently or been in a relationship where the following occur: No concerns reported THRIVE Score: 0 AUDIT C Alcohol Use Questionnaire (AUDIT-C) 1. How often do you have a drink containing alcohol?: 2-4 times a month 2. How many drinks containing alcohol do you have on a typical day when you are drinking?: 1 or 2 3. How often do you have six or more drinks on one occasion?: Never Total Score: 2 Score Reviewed/Action Taken: No GERMAN-7 AMB Questionnaire GERMAN-7 Date GERMAN - 7 assessed: 03/12/25 Feeling nervous, anxious, or on edge: 0 = Not at all Not being able to stop or control worryin = Not at all Worrying too much about different things: 0 = Not at all Trouble relaxin = Not at all Being so restless that it is hard to sit still: 0 = Not at all Becoming easily annoyed or irritable: 1 = Several days Feeling afraid as if something awful might happen: 0 = Not at all Total GERMAN-7 score (0-4 normal; 5-9 mild; 10-14 moderate; 15-21 severe): 1 Source: Developed by Drs. Alvin Tran, Kaylee Tran, Kvng Norman and colleagues, with an educational tasneem from [place]. GERMAN-7 Assessment Billing GERMAN-7 Assessment Tool: GERMAN-7 Assessment 96934 Review of Systems Const Details: - Cardiovascular: Reports atrial fibrillation. Denies chest pain or palpitations. - Respiratory: Denies shortness of breath. - Neurological: Denies dizziness or numbness. - General: Reports feeling well overall. Denies any acute symptoms. Physical exam (Primary Care) Vital Signs: Last Vital Signs Temp 97.1 F 03/12/25 14:47 Pulse 56 03/12/25 14:47 BP 124/58 L 03/12/25 14:47 Pulse Ox 96 03/12/25 14:47 Oxygen Delivery Method Room Air 03/12/25 14:47 Care Plan Goal for BP management: <140/90 at Goal BMI result Body Mass Index 31.5 BMI Assessment/Plan discussion: High BMI High, discussed plan: lifestyle, weight reduction, dietary, physical activity and alcohol moderation Tobacco/Smoking Status: Tobacco use Status Tobacco use date assessed 03/12/25 03/12/25 14:41 Patient Tobacco Use Status Former Tobacco user 03/12/25 14:41 Tobacco use type Cigarette 03/12/25 14:41 e-Cigarette/Vaping Use Never Used 03/12/25 14:41 PHQ-9: PHQ-9 Score PHQ-9: Total score 0 03/12/25 14:41 Depression Screening Interpretation: Negative Thrive Assessment: Date of Thrive Assessment Date Thrive assessed 03/12/25 03/12/25 14:41 Currently or been in a relationship where the following occur: No concerns reported Const Other: Appearance: Alert. Oriented X3. No acute distress. Head: Normal external exam. Normocephalic. Atraumatic. Eyes: Pupils are equal, round, and reactive to light. Extraocular movements intact. Conjunctiva and sclera normal. Eyelids normal. Ears: External auditory canal normal. Tympanic membranes normal. Throat: Pharynx normal. Uvula midline. Moist mucous membranes. Neck: Normal inspection. Neck supple. Full range of motion. No adenopathy. Thyroid Normal. No meningeal signs. No neck mass noted. Cardiovascular: Normal heart rate and rhythm. Heart sound normal. No murmurs noted. Pulses normal throughout. Blood pressure is 124/58, which might be related to metoprolol. Respiratory: No respiratory distress. Painless inspiration. Breath sounds normal. No wheezes/rales/rhonchi noted. Chest nontender. No accessory muscle usage noted or decreased air movement noted. Abdomen: Soft and nontender. Bowel sounds normal in all 4 quadrants. No distention noted. No organomegaly noted. No visible injury noted. Back: No costovertebral angle tenderness. Full range of motion noted. Skin: Skin warm and dry. Normal skin color. Normal skin turgor. No rashes/lesions/lacerations noted. Extremities: No lower extremity edema. Extremities exhibit normal range of motion. Extremities nontender. No calf tenderness noted. Neuro: Oriented X 3. No motor deficit. No sensory deficit. Reflexes normal. No dizziness or numbness reported. Results Reviewed Results Reviewed: - Labs: Previous cholesterol elevated with total cholesterol at 200, LDL at 137. - Tests and Diagnostics: Echocardiogram scheduled to evaluate biatrial chamber size. Coding Level of Care Code Est Pt Level 4 (62888) Est Pt Prev Care 40-64y(30826) Diagnoses Annual physical exam Z00.00 Paroxysmal atrial fibrillation I48.0 Aortic regurgitation I35.1 Hyperlipidemia LDL goal <100 E78.5 Pure hypercholesterolemia, unspecified E78.00 Class 1 obesity with body mass index (BMI) of 31.0 to 31.9 in adult E66.811; Z68.31 Additional Codes GERMAN-7 Assessment Billing - GERMAN-7 Assessment Tool: GERMAN-7 Assessment [id number] ([id number]) PHQ-9 - 91926 - PHQ-9 Billing: Yes ([id number]) Assessment & Plan Assessment & Plan (1) Annual physical exam: Code(s): Z00.00 - Encounter for general adult medical examination without abnormal findings Category: Medical (2) Paroxysmal atrial fibrillation: Code(s): I48.0 - Paroxysmal atrial fibrillation Category: Medical Plan: The patient is treated with metoprolol and Eliquis. Additional blood tests and sleep studies are advised to rule out underlying causes. Monitoring for symptoms of thromboembolic events is recommended. Condition is chronic and stable continue to monitor. (3) Aortic regurgitation: Comment: Secondary to bicuspid aortic valve Code(s): I35.1 - Nonrheumatic aortic (valve) insufficiency Category: Medical Plan: Moderate aortic regurgitation will be monitored with a repeat echocardiogram. The patient is advised to avoid caffeine and alcohol and continue follow-up with cardiology. Condition is chronic and stable continue to monitor. (4) Hyperlipidemia LDL goal <100: Code(s): E78.5 - Hyperlipidemia, unspecified Category: Medical Plan: Commencement of rosuvastatin therapy for hyperlipidemia, with follow-up lipid panels to evaluate treatment efficacy. Condition is chronic and stable continue to monitor. (5) Pure hypercholesterolemia, unspecified: Code(s): E78.00 - Pure hypercholesterolemia, unspecified Category: Medical Plan: Commencement of rosuvastatin therapy for hyperlipidemia, with follow-up lipid panels to evaluate treatment efficacy. Condition is chronic and stable continue to monitor. (6) Class 1 obesity with body mass index (BMI) of 31.0 to 31.9 in adult: Code(s): E66.811 - Obesity, class 1; Z68.31 - Body mass index [BMI] 31.0-31.9, adult Category: Medical Plan: Patient to improve diet and exercise regimen. Condition is chronic and stable continue to monitor. Plan Plan Patient was informed and verbally consented to the use of an ambient scribe for clinic note documentation during this visit. 1. Aortic Regurgitation Moderate aortic regurgitation will be monitored with a repeat echocardiogram. The patient is advised to avoid caffeine and alcohol and continue follow-up with cardiology. 2. Atrial Fibrillation The patient is treated with metoprolol and Eliquis. Additional blood tests and sleep studies are advised to rule out underlying causes. Monitoring for symptoms of thromboembolic events is recommended. 3. Hyperlipidemia Commencement of rosuvastatin therapy for hyperlipidemia, with follow-up lipid panels to evaluate treatment efficacy. I discussed with the patient her current cardiac conditions, including aortic regurgitation and atrial fibrillation. We reviewed the importance of monitoring these conditions and avoiding exacerbating factors such as caffeine and alcohol. I explained the need for a repeat echocardiogram to assess her heart condition further. Additionally, we discussed the initiation of rosuvastatin to manage her elevated cholesterol levels, emphasizing the importance of lifestyle changes and medication adherence. The patient was informed of the risks associated with atrial fibrillation, including thromboembolic events, and the necessity of monitoring for symptoms that require emergency evaluation. I advised her on the importance of completing the recommended blood work and sleep study and encouraged follow-up with cardiology. Medications: New rosuvastatin (Crestor) 10 mg PO BEDTIME 90 tabs 1RF Refilled bupropion HCl XL (Wellbutrin XL) 150 mg PO QAM 90 tabs 1RF clotrimazole-betamethasone 1-0.05 % Use sparingly externally only and for limited episodes of use. 1 appl topical BID 2 weeks 45 grams 4RF Patient Instructions: - Take rosuvastatin at bedtime. - Avoid caffeine and alcohol. - Monitor blood pressure regularly. - Complete scheduled echocardiogram and blood work. - Call 911 if you have chest pain, confusion, or trouble breathing. - Follow up with cardiology as recommended. - Maintain a healthy lifestyle with proper diet and exercise. - Return for follow-up in six months.
[2025-03-12 14:47] VITALS: BP 124/58; PULSE 56; TEMP 36.2; O2SAT 96; BMI 31.5
== END 2025-03-12 15:07 | disposition home or self-care (01) ==
LOC: HO.HMCH 14:25
PROVIDERS: PCP Internal Medicine; Visit Provider Physician Assistant Medical
DX: Z00.00 Encounter for general adult medical examination without abnormal findings (principal); I48.0 Paroxysmal atrial fibrillation; I35.1 Nonrheumatic aortic (valve) insufficiency; E78.5 Hyperlipidemia, unspecified; E78.00 Pure hypercholesterolemia, unspecified; E66.811 Obesity, class 1; Z68.31 Body mass index [BMI] 31.0-31.9, adult

== ENCOUNTER → 2025-03-12 14:24 | Outpatient (BNVA) | payer OTHER, SELFPAY | PROVIDERS: PCP Internal Medicine; Visit Provider Physician Assistant Medical | DX: Z00.00 Encounter for general adult medical examination without abnormal findings (principal); I48.0 Paroxysmal atrial fibrillation; I35.1 Nonrheumatic aortic (valve) insufficiency; E78.5 Hyperlipidemia, unspecified; E78.00 Pure hypercholesterolemia, unspecified; E66.811 Obesity, class 1; Z68.31 Body mass index [BMI] 31.0-31.9, adult; Z79.01 Long term (current) use of anticoagulants; Z79.899 Other long term (current) drug therapy | CPT/HCPCS: 96127 ==

== ENCOUNTER 2025-03-17 09:48 | Outpatient (REF) | payer OTHER, SELFPAY ==
[2025-03-17 11:18] LABS: Hemoglobin 13.3 g/dl (12.0-16.0); Mean Corpuscular HGB Conc 33.3 g/dl (31.0-35.0); Mean Corpuscular Volume 96.4 fL (80.0-98.0); Mean Platelet Volume 12.4 fL (9.4-12.3); Platelet Count 222 X10*3/uL (160-400); Red Blood Count 4.15 X10*6/uL (4.20-5.50); Red Cell Distribution Width 12.1 % (11.0-16.0)
[2025-03-17 11:44] LABS: B Type Natriuretic Peptide 136 pg/mL (<100)
[2025-03-17 11:50] LABS: Anion Gap 10 (12-20); Blood Urea Nitrogen 23 mg/dL (9-16); Calcium 9.3 mg/dL (8.4-10.2); Carbon Dioxide 25 mmol/L (22-29); Chloride 111 mmol/L (96-108); Estimated Glomerular Filt Rate 58; Glucose Random 88 mg/dL (60-115); Potassium 4.4 mmol/L (3.3-5.1); Sodium 142 mmol/L (135-145)
[2025-03-17 12:06] LABS: TSH reflex Free T4 1.66 uIU/mL (0.32-4.0)
== END 2025-03-17 09:49 | disposition home or self-care (01) ==
LOC: HO.LAB 09:48
PROVIDERS: Absent Provider Internal Medicine Cardiovascular Disease; PCP Internal Medicine; Visit Provider Physician Assistant Medical
DX: I48.0 Paroxysmal atrial fibrillation (principal)
CPT/HCPCS: 36415; 80048; 83735; 83880; 84443; 85027

== ENCOUNTER → 2025-04-01 13:02 | Outpatient (REF) | payer OTHER, SELFPAY ==
--- NOTE | 2025-04-01 13:06 | CA_ITS ---
Transthoracic Echocardiogram Patient (Last, First, Middle): Ruth Ann Burks, Gender: Female Date of : 1965 Age: 60 Procedure Date: 04/01/2025 Procedure Type: Transthoracic Echocardiogram Location: OP Height: 172.72 cm Weight: 90.72 kg BSA: 2.04 m2 Heart Rate: bpm BP: 110 / 60 mmHg Telecine Operator: GIL/GREGORIO Referring MD: Adonay Petersen MD National Sales Consultant: Adonay Petersen MD Symptoms: I35.1 - Nonrheumatic aortic (valve) insufficiency Study Quality: Adequate ECG Rhythm: Sinus bradycardia Conclusions: - 1. Normal LV ejection fraction of 60 65% 2. Mildly dilated left atrium 3. [id number] aortic regurgitation 4. Mildly dilated ascending aorta 5. Normal RV systolic pressure 6. No pericardial effusion Findings Left Ventricle Normal left ventricular size, thickness, and systolic function. The visually estimated ejection fraction is between 60-65%. Spectral Doppler is indicative of a normal filling pattern. Right Ventricle Normal right ventricular cavity size and systolic function. Atria The left atrium is mildly dilated. There is no evidence of interatrial shunt. The right atrium was not well visualized. Aortic Valve There is mild calcification of the aortic valve. There is no aortic valve stenosis. There is mild to moderate aortic valve regurgitation. Mitral Valve Likely normal mitral valve structure and function. There is trace mitral valve regurgitation. There is no mitral valve stenosis. Pulmonic Valve The pulmonic valve was not well visualized. Tricuspid Valve Likely normal tricuspid valve structure and function. There is trace tricuspid valve regurgitation. The right ventricular systolic pressure is normal. The right ventricular systolic pressure is 29 mmHg. Normal right atrial pressure. There is no evidence of pulmonary hypertension. Great Vessels The pulmonary artery was not well visualized. There is mild dilatation of the ascending aorta measuring 4.10 cm. Venous The inferior vena cava is normal in size and collapses greater than 50% with inspiration. Pericardium/Pleural There is no evidence of pericardial effusion. Prior Study Comparison no previous study in the last 5 years for comparison Measurements 2D Linear Measurements IVSd: 0.92 0.6-0.9/0.6-1.0 cm LVIDd: 6.30 3.9-5.3/4.2-5.9 cm LVIDd Index: 3.09 2.4-3.2/2.2-3.1 cm/m2 LVIDs: 4.02 2.0-3.6 cm LVPWd: 0.89 0.7-1.1 cm LA Diam: 4.20 2.7-3.8/3.0-4.0 cm LAIDs Index: 2.06 1.5-2.3 cm/m2 LV Mass: 293.47 67-162/88-224 g LV Mass Index: 143.86 43-95/49-115 g/m2 LVOT Diam: 2.50 3.0+(-)1.3 cm 2D Systolic Function EF 4C: 61.80 >55% EF 2C: 67.40 >55% EF BiP: 64.00 >55% Mitral Valve MV Pk E: 0.62 MV PK A: 0.42 MV Decel Time: 309.00 E/A: 1.50 E'Lateral: 5.77 E'Medial: 5.33 E/E' Med: 11.70 E/E' Lat: 10.80 PHT: 91.00 MVA PHT: 2.42 Decel [place]: 2.02 Aortic Valve AoV Pk Myron: 1.91 AoV Mn Myron: 1.36 AoV VTI: 0.57 AoV Pk Grad: 15.00 Aov Mn Grad: 9.00 ELEAZAR Cont.VTI: 2.52 AI Pk Myron: 3.77 AI [place]: 1.80 LVOT LVOT Pk Myron: 0.94 LVOT Mn Myron: 0.73 LVOT VTI: 0.29 LVOT Pk Grad: 4.00 LVOT Mn Grad: 2.00 LVOT Diam: 2.50 LVOT Area: 4.91 Diastolic Function MV Pk E: 0.62 MV Pk A: 0.42 E/A: 1.50 E'Medial: 5.33 E/E' Med: 11.70 E' Laterial: 5.77 E/E' Lat: 10.80 Right Ventricle TAPSE (mm): 26.50 TVS' Myron: 12.60 Tricuspid Valve TR Pk Myron: 2.54 TR Pk Grad: 26.00 RA Press: 3.00 RVSP: 29.00 Great Vessels Aorta Sinus of Valsalva: 3.76 2.0-3.[address] [place]: 2.74 1.7-3.4 cm Ao Asc: 4.10 2.1-3.4 cm Ao Arch: 2.80 Updated in Other Vendor System with Status of Final Adonay Petersen MD electronically signed on 04/01/2025 2:49:30 PM with status of Final
== END ==
LOC: HO.CARD 13:02
PROVIDERS: PCP Internal Medicine; Visit Provider Internal Medicine Cardiovascular Disease
DX: I35.1 Nonrheumatic aortic (valve) insufficiency (principal)
CPT/HCPCS: 93306

== ENCOUNTER → 2025-04-01 13:06 | Outpatient (BNV) | payer OTHER, SELFPAY | PROVIDERS: PCP Internal Medicine; Visit Provider Internal Medicine Cardiovascular Disease | DX: I35.1 Nonrheumatic aortic (valve) insufficiency (principal) | CPT/HCPCS: 93306 ==

== ENCOUNTER 2025-04-23 08:47 | Outpatient (AMB) | payer OTHER, SELFPAY ==
--- OUTSIDE RECORDS SUMMARY | 2025-04-23 09:02 | XMS_ITS | Patient Health Record ---
Author Organization [facility] Address [address] [place] [id number] Care Team Providers Care Setter Out Name Role Phone Alvin Quintanilla [phone] Reason For Referral No Information Plan Of Treatment No Information
[2025-04-23 09:16] VITALS: BP 110/64; PULSE 60; BMI 31.6
--- NOTE | 2025-04-23 09:16 | A.OFFVIS_ITS ---
Vital Signs 04/23/25 09:16 Height 5 ft 8 in Weight 207 lb 10.807 oz BMI 31.6 BP 110/64 Blood Pressure Location Lt brachial Position Sitting Pulse 60 Pulse Source Pulse Oximeter Intake Visit Reasons: 6wk follow up/echo/home sleep study Intake Note: 6 wk/ echo Child Care Center Administrator Required: No Accompanied by: Self / Same As Patient Allergies No Known Allergies Allergy (Verified 03/12/25 14:52) Medication List - Last Reconciled 04/23/25 by Adonay Petersen MD apixaban (Eliquis) 5 mg PO BID bupropion HCl XL (Wellbutrin XL) 150 mg PO QAM clotrimazole-betamethasone 1-0.05 % 1 appl topical BID 2 weeks metoprolol succinate ER (Toprol XL) 25 mg PO DAILY rosuvastatin (Crestor) 10 mg PO BEDTIME HPI Comments Details: Ruth Ann comes for follow-up. She has been doing well from cardiac perspective. She has not had any significant cardiac symptoms. Occasional fluttering in his chest. No prolonged irregular heartbeat or palpitations or strong pounding. Denies any exertional chest pain or shortness of breath. No orthopnea, PND. Takes all her medications. Home sleep study is pending for tomorrow. Tolerating rosuvastatin and Eliquis. [facility] Medical History Annual physical exam Class 1 obesity with body mass index (BMI) of 31.0 to 31.9 in adult Pure hypercholesterolemia, unspecified Hyperlipidemia LDL goal <100 Ascending aorta enlargement History of Papanicolaou smear of cervix (~02/10/25) History of mammogram (~06/13/24) Endogenous depression Aortic regurgitation Surgical History History of colonoscopy (~08/21/19) No pertinent past surgical history Family History Other Mental health disorder Substance use disorder Social History Housing: House Alcohol intake: current Alcohol intake frequency: a few times a month Patient Tobacco Use Status: Former Tobacco user Tobacco use type: Cigarette e-Cigarette/Vaping Use: Never Used Second Hand Smoke Exposure: Yes service: No Current occupational status: employed Cognitive needs: No Hearing needs: No Vision needs: Yes (Glasses) Female Reproductive History Menstrual Age of Menarche: 14 Review of Systems Const Denies chills, Denies fatigue, Denies fever(s), Denies frequent falls, Denies weakness, Denies weight gain and Denies weight loss ENT Denies dizziness Card Denies chest pain, Denies leg edema, Denies lightheadedness, Denies palpita tions, Denies dyspnea and Denies dyspnea on exertion Resp Denies cough, Denies dyspnea and Denies dyspnea on exertion GI Denies hematochezia Musc Denies abnormal gait, Denies muscle weakness, Denies numbness, Denies radiating pain into limb and Denies tingling Neuro Denies Abnormal speech present, Denies abnormal gait, Denies dizziness, Denies frequent falls, Denies numbness, Denies tingling and Denies weakness Endo Denies fatigue and Denies palpitations Physical Exam Vital Signs: Last Vital Signs Pulse 60 04/23/25 09:16 BP 110/64 04/23/25 09:16 BMI result Body Mass Index 31.6 Const General: cooperative, comfortable, no acute distress, alert, awake and well groomed Nutritional Appearance: obese Orientation/consciousness: patient oriented x3 Limitations: no limitations HEENT Head: Yes normocephalic and Yes atraumatic Neck Neck: Yes trachea midline, Yes supple and Yes no JVD Resp Effort & Inspection: normal respiratory effort Auscultation: clear to auscultation bilaterally Cardio Jugular venous distension: no JVD Rate: regular rate Rhythm: regular rhythm Heart sounds: S1 normal heart sound present, S2 normal heart sound present, no click, no gallops, no murmurs and no rubs GI Auscultation: normal bowel sounds Skin General skin exam: no rashes or lesions noted Neuro General: patient oriented x3 and no focal motor deficits Speech: No Abnormal speech present Extrem General: Yes no clubbing, cyanosis or edema Psych Appearance: grossly normal Assessment & Plan Assessment & Plan (1) Paroxysmal atrial fibrillation: Code(s): I48.0 - Paroxysmal atrial fibrillation Category: Medical Plan: Paroxysmal atrial fibrillation with occasional fluttering in his chest most likely related to PACs. No prolonged palpitation irregular heartbeat. No indication for antiarrhythmic drug therapy. Continue metoprolol therapy for reducing cardiac excitability. Avoidance of stimulants was discussed. Stress mitigation strategies were discussed. Continue full oral anticoagulation, currently on apixaban 5 mg b.i.d.. (2) Aortic regurgitation: Comment: Secondary to bicuspid aortic valve Code(s): I35.1 - Nonrheumatic aortic (valve) insufficiency Category: Medical Plan: Bicuspid aortic valve with moderate aortic regurgitation mild ascending aortic enlargement. Continue to monitor clinically. No interventions required per se. Will follow-up echocardiogram on annual basis. Continue metoprolol therapy. Continue aggressive blood pressure control. Advised to avoid sudden strenuous isometric exercise. (3) Hyperlipidemia LDL goal <100: Code(s): E78.5 - Hyperlipidemia, unspecified Category: Medical Plan: Hyperlipidemia with started rosuvastatin therapy. Follow-up lipid panel in 2 months time. Goal LDL less than 100 mg/dL. Heart healthy lifestyle as well as dietary modification was discussed. Will follow up in the clinic in 6 months time, sooner p.r.n.. Thank you for allowing me to partake in her care Coding Level of Care Code Est Pt Level 4 (91411) Complex EM visit Add On G2211 Diagnoses Paroxysmal atrial fibrillation I48.0 Aortic regurgitation I35.1 Hyperlipidemia LDL goal <100 E78.5
== END 2025-04-23 09:37 | disposition home or self-care (01) ==
LOC: HO.HCS 08:48
PROVIDERS: PCP Internal Medicine; Visit Provider Internal Medicine Cardiovascular Disease
DX: I48.0 Paroxysmal atrial fibrillation (principal); I35.1 Nonrheumatic aortic (valve) insufficiency; E78.5 Hyperlipidemia, unspecified
CPT/HCPCS: 99214; G2211

== ENCOUNTER → 2025-05-13 14:01 | Outpatient (REF) | payer OTHER, SELFPAY ==
--- OUTSIDE RECORDS SUMMARY | 2025-05-13 14:42 | XMS_ITS | Patient Health Record ---
Author Organization [facility] Address [address] [place] [id number] Care Team Providers Care Junior Business Analyst Name Role Phone Alvin Quintanilla [phone] Reason For Referral No Information Plan Of Treatment No Information
== END ==
LOC: HO.SL 14:01
PROVIDERS: PCP Internal Medicine; Visit Provider Internal Medicine Cardiovascular Disease
DX: I48.0 Paroxysmal atrial fibrillation (principal); R40.0 Somnolence; R06.83 Snoring
CPT/HCPCS: 95806

== ENCOUNTER → 2025-05-13 14:10 | Outpatient (BNV) | payer OTHER, SELFPAY | PROVIDERS: PCP Internal Medicine; Visit Provider Internal Medicine | DX: R40.0 Somnolence (principal) | CPT/HCPCS: 95806 ==

== ENCOUNTER 2025-05-27 09:34 | Outpatient (AMB) | payer OTHER, SELFPAY ==
[2025-05-27 09:40] VITALS: BP 118/62; PULSE 60; O2SAT 94; BMI 29.6
--- NOTE | 2025-05-27 09:40 | MHC.OFFVIS ---
Vital Signs 05/27/25 09:40 Height 5 ft 10 in Weight 206 lb BMI 29.6 BP 118/62 Blood Pressure Location Rt brachial Position Sitting Pulse 60 Pulse Source Pulse Oximeter Pulse Oximetry (%) 94 Oxygen Delivery Method Room Air Intake Visit Reasons: Colonoscopy Screening Intake Note: New/Est pt for recall colo. Prev colos 2018 + 2013. CC: Pt denies any GI sx or concerns at this time. Recall q5 years. 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 female with past medical history of PAF, hypercholesteremia, aortic regurgitation is here today for pre colonoscopy screening.? Patient was sent to us by her PCP.? Last colonoscopy with Dr. Black in August of 2019. Benign polyp found. History of tubular adenomas in the past. Patient denies any gastrointestinal symptoms in the past or at present.? Family history of CRC. Patient's brother was diagnosed with colorectal cancer in his 40s.? Denies history of difficulty with sedation or anesthesia in the past.? Negative for history of sleep apnea.? Denies any history of renal, pulmonary, or hepatic disease.?? No history of infectious? diseases like hepatitis A, B, C, HIV or tuberculosis.? History of PAF, patient is on Eliquis [facility] Medical History Annual physical exam Class 1 obesity with body mass index (BMI) of 31.0 to 31.9 in adult Pure hypercholesterolemia, unspecified Hyperlipidemia LDL goal <100 Ascending aorta enlargement History of Papanicolaou smear of cervix (~02/10/25) History of mammogram (~06/13/24) Endogenous depression Aortic regurgitation Surgical History History of colonoscopy (~08/21/19) No pertinent past surgical history Family History Other Mental health disorder Substance use disorder Social History Housing: House Alcohol intake: current Alcohol intake frequency: a few times a month Patient Tobacco Use Status: Former Tobacco user Tobacco use type: Cigarette e-Cigarette/Vaping Use: Never Used Second Hand Smoke Exposure: Yes service: No Current occupational status: employed Cognitive needs: No Hearing needs: No Vision needs: Yes (Glasses) Female Reproductive History Menstrual Age of Menarche: 14 Review of Systems Const Denies weight gain and Denies weight loss ENT Reports no additional complaints, Denies dysphagia and Denies odynophagia Card Reports no additional complaints Resp Reports no additional complaints GI Denies abdominal pain, Denies belching, Denies melena, Denies bloating, Denies change in bowel habits, Denies dysphagia, Denies excessive flatus, Denies dyspepsia, Denies heartburn, Denies diarrhea, Denies loose stools, Denies nausea, Denies odynophagia and Denies vomiting Musc Reports no additional complaints Neuro Reports no additional complaints Psych Reports no additional complaints Endo Reports no additional complaints Physical Exam Vital Signs: Last Vital Signs Pulse 60 05/27/25 09:40 BP 118/62 05/27/25 09:40 Pulse Ox 94 05/27/25 09:40 Oxygen Delivery Method Room Air 05/27/25 09:40 BMI result Body Mass Index 29.6 Const General: healthy appearing, no acute distress and well developed Nutritional Appearance: well nourished Orientation/consciousness: patient oriented x3 Resp Effort & Inspection: normal respiratory effort, able to speak in complete sentences, no tracheal deviation and symmetric chest movement Auscultation: clear to auscultation bilaterally Cardio Rate: regular rate GI Inspection: Yes normal to inspection and No distended Palpation (GI): Soft to palpation, not firm, nontender and No hepatosplenomegaly present Auscultation: normal bowel sounds General: Yes no CVA tenderness Back/Spine/Pelvis Back: no CVA tenderness Skin General skin exam: elasticity normal, turgor normal and dry skin Neuro General: patient oriented x3 Psych Appearance: grossly normal Mental Status: mental status grossly normal Assessment & Plan Assessment & Plan (1) Colon cancer screening: Code(s): Z12.11 - Encounter for screening for malignant neoplasm of colon Category: Medical Plan Patient denies any GI, cardiac or respiratory symptoms.? Denies any issues with anesthesia in the past.? Denies any history of sleep apnea, however patient just had sleep apnea study. No history infectious diseases in the past or present.? Patient is on Eliquis. History of PAF. Denies any cardiac or respiratory symptoms. Please call process line operator's office for clearance. Family history of CRC.? Patient denies melena, hematochezia, unintentional weight loss or ribbon like stools.? Discussed at length the pre-procedure,? prep, diet & medications as well as what to expect prior, during and after the procedure.?? Stressed the importance of good bowel prep.? Recommended the use of Vaseline or Calmoseptine OTC & baby wipes with bowel movements to promote comfort.? ?Patient verbalizes understanding and agrees to plan of care.? She was given the opportunity to ask questions and all questions answered.? We will see her after the procedure.? Medications: New bisacodyl (Dulcolax (bisacodyl)) take 4 tabs at noon the day before your colonoscopy 20 mg (4 x 5 mg) PO ONCE 4 tabs 0RF constipation 1 day Z12.11 - Encounter for screening for malignant neoplasm of colon polyethylene glycol 3350 (Miralax) As directed by gastroenterology department at [facility] 238 grams PO ONCE 238 grams 0RF Z12.11 - Encounter for screening for malignant neoplasm of colon Coding Level of Care Code New Pt Level 3 (62182) Diagnoses Colon cancer screening Z12.11 Time Spent (min) 40 Comment 30 minutes spent with patient and additional 10 minutes spent reviewing her records
--- OUTSIDE RECORDS SUMMARY | 2025-05-27 10:03 | XMS_ITS | Patient Health Record ---
Author Organization [facility] Address [address] [place] [id number] Care Team Providers Care Retirement Assistant Name Role Phone lAvin Quintanilla [phone] Reason For Referral No Information Plan Of Treatment No Information
== END 2025-05-27 10:13 | disposition home or self-care (01) ==
LOC: HO.HGI 09:35
PROVIDERS: PCP Internal Medicine; Visit Provider Nurse Practitioner Family
DX: Z01.818 Encounter for other preprocedural examination (principal); Z12.11 Encounter for screening for malignant neoplasm of colon
CPT/HCPCS: 99203

== ENCOUNTER 2025-06-19 14:25 | Outpatient (REF) | payer OTHER, SELFPAY ==
--- NOTE | ~2025-06-19 | MM_ITS ---
EXAMINATION: MM SCREENING DIGITAL BREAST TOMOSYNTHESIS, BILATERAL CLINICAL INFORMATION: Screening. Asymptomatic. COMPARISON: Mammography: Comparison is made with available priors TECHNIQUE: Digital breast mammography with tomosynthesis is performed in both the craniocaudal and mediolateral oblique views along with computer-aided detection (CAD). FINDINGS: There are scattered areas of fibroglandular density (ACR BI-RADS breast composition Category b). Right breast Postsurgical changes. There are no significant masses, abnormal calcifications, or other abnormalities. MM/MM tomosynthesis screening BI IMPRESSION: No mammographic evidence of malignancy. ASSESSMENT: BI-RADS BI-RADS 2 - Benign Findings RECOMMENDATION: Routine annual mammography screening. 1 year F/U This examination should not preclude the clinical evaluation of a suspicious palpable abnormality. This patient's information was entered into a reminder system with a target due date for their next mammogram. Electronically signed by: Jaimie Suazo DO 06/23/2025 10:04 AM EDT
--- OUTSIDE RECORDS SUMMARY | 2025-06-19 14:47 | XMS_ITS | Patient Health Record ---
Author Organization [facility] Address [address] [place] [id number] Care Team Providers Care Morning Show Host Name Role Phone Alvin Quintanilla [phone] Reason For Referral No Information Plan Of Treatment No Information
== END 2025-06-19 14:26 | disposition home or self-care (01) ==
LOC: HO.MAMMO 14:25
PROVIDERS: PCP Internal Medicine; Visit Provider Internal Medicine
DX: Z12.31 Encounter for screening mammogram for malignant neoplasm of breast (principal)
CPT/HCPCS: 77063; 77067

== ENCOUNTER → 2025-06-19 14:30 | Outpatient (BNV) | payer OTHER, SELFPAY | PROVIDERS: PCP Internal Medicine; Visit Provider Internal Medicine | DX: Z12.31 Encounter for screening mammogram for malignant neoplasm of breast (principal) | CPT/HCPCS: 77063; 77067 ==

== ENCOUNTER 2025-09-16 11:33 | Outpatient (AMB) | payer OTHER, SELFPAY ==
--- NOTE | 2025-09-16 11:38 | MHC.PC.OV ---
Vital Signs 09/16/25 11:40 Height 5 ft 8 in Weight 208 lb 6 oz BMI 31.7 BP 120/64 Blood Pressure Location Lt brachial Position Sitting Pulse 63 Pulse Source Pulse Oximeter Temp 97.1 F Temp Source Temporal Artery Scan Pulse Oximetry (%) 96 Oxygen Delivery Method Room Air Intake Visit Reasons: 6mth f/u Intake Note: Patient is here to follow up on Hypercholesterolemia, HLD, PAfib, Social Services Director Required: No [employer] Teacher: Not Required per policy Accompanied by: Self / Same As Patient Allergies No Known Allergies Allergy (Verified 09/16/25 13:31) Medication List - Last Reconciled 09/16/25 by Lan Hooper MD apixaban (Eliquis) 5 mg PO BID bisacodyl (Dulcolax (bisacodyl)) 20 mg (4 x 5 mg) PO ONCE 1 day bupropion HCl XL (Wellbutrin XL) 150 mg PO QAM clotrimazole-betamethasone 1-0.05 % 1 appl topical BID 2 weeks metoprolol succinate ER 25 mg PO DAILY polyethylene glycol 3350 (Miralax) 238 grams PO ONCE rosuvastatin 10 mg PO BEDTIME Tobacco use date assessed: 09/16/25 Dental Screening Dental Screen Date: 03/12/25 HPI HPI Comments History of Present Illness Details History of Present Illness - The patient is a 60 year old individual presenting for a follow-up visit for chronic condition management and preventative care. - The patient reports feeling fatigued. - The patient has a history of atrial fibrillation, which is reportedly well-controlled with no recent episodes. - The patient is prescribed apixaban twice daily, bupropion once daily, metoprolol once daily, and a statin once daily. - The patient admits to sometimes forgetting to take the nighttime medications. - The patient experiences increased bleeding with minor cuts due to being on a blood thinner. - The patient's depression is reportedly well-tolerated with medication. - Routine blood work from March, including kidney function and anemia checks, was normal, as was a thyroid test. - Cholesterol was not checked at that time. - Regarding preventative screenings, the patient completed a mammogram in June of this year and has a colonoscopy scheduled for the . 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 - Alcohol Use: The patient reports very low alcohol intake because it can trigger atrial fibrillation. - Exercise: The patient reports a sedentary lifestyle but is aware of the need to exercise. - Weight Management: The patient expresses dissatisfaction with being overweight. Results - Labs: Routine blood work performed in March 2023, including kidney function and anemia panels, was normal. - Cholesterol was not checked during the March labs. - Thyroid function test results were normal. - Tests and Diagnostics: A mammogram was performed in June 2023 and the patient is considered up-to-date. [facility] Medical History Annual physical exam Class 1 obesity with body mass index (BMI) of 31.0 to 31.9 in adult Pure hypercholesterolemia, unspecified Hyperlipidemia LDL goal <100 Ascending aorta enlargement History of Papanicolaou smear of cervix (~02/10/25) History of mammogram (~06/13/24) Endogenous depression Aortic regurgitation Surgical History History of colonoscopy (~08/21/19) No pertinent past surgical history Family History Other Mental health disorder Substance use disorder Social History Housing: House Alcohol intake: current Alcohol intake frequency: a few times a month Patient Tobacco Use Status: Former Tobacco user Tobacco use type: Cigarette e-Cigarette/Vaping Use: Never Used Second Hand Smoke Exposure: Yes service: No Current occupational status: employed Cognitive needs: No Hearing needs: No Vision needs: Yes (Glasses) Female Reproductive History Menstrual Age of Menarche: 14 Questionnaire Thrive Questionnaire Date Thrive assessed: 03/05/25 I am a: Patient What is your living situation today?: I have a steady place to live Within the past 12 months, did the food you bought not last and you didn't have the money to get more?: Never true Within the past 12 months, did you worry whether your food would run out before you got money to buy more?: Never true Do you have trouble paying for medicines?: No Do you have trouble getting transportation to medical appointments?: No Do you have trouble paying your heating and electricity bill?: No Do you have trouble taking care of your child, family member or friend?: No Do you have trouble with day-to-day activities such as bathing, preparing meals, shopping, managing finances, etc.?: No Are you currently unemployed and looking for a job?: No Are you interested in more education?: No Please select the resources that you would like help with: None Currently or been in a relationship where the following occur: No concerns reported THRIVE Score: 0 GERMAN-7 AMB Questionnaire GERMAN-7 Date GERMAN - 7 assessed: 03/12/25 Source: Developed by Drs. Alvin Tran, Kaylee Tran, Kvng Norman and colleagues, with an educational tasneem from [employer]. Review of Systems Narrative Review of Systems Physical exam (Primary Care) Vital Signs: Last Vital Signs Temp 97.1 F 09/16/25 11:40 Pulse 63 09/16/25 11:40 BP 120/64 09/16/25 11:40 Pulse Ox 96 09/16/25 11:40 Oxygen Delivery Method Room Air 09/16/25 11:40 BMI result Body Mass Index 31.7 Tobacco/Smoking Status: Tobacco use Status Tobacco use date assessed 09/16/25 09/16/25 11:44 Patient Tobacco Use Status Former Tobacco user 09/16/25 11:44 Tobacco use type Cigarette 09/16/25 11:44 e-Cigarette/Vaping Use Never Used 09/16/25 11:44 Thrive Assessment: Date of Thrive Assessment Date Thrive assessed 03/05/25 09/16/25 11:44 Currently or been in a relationship where the following occur: No concerns reported Narrative Physical Exam General: Appearance normal, both eyes and all related structures Nutritional Appearance: Overweight Orientation/consciousness: Patient oriented x3 Limitations: No limitations Head: Normal to inspection Neck: Normal visual inspection Chest: Normal palpation of entire chest wall Respiratory: Normal respiratory effort Neurology: Patient oriented x3 Coding Level of Care Code Est Pt Level 4 (04712) Complex visit Add On G2211 Diagnoses Endogenous depression F33.2 Assessment & Plan Assessment & Plan (1) Endogenous depression: Code(s): F33.2 - Major depressive disorder, recurrent severe without psychotic features Category: Medical Plan Plan - Medications: Continue apixaban, bupropion, metoprolol, and statin as prescribed. - Advised that medications other than the twice-daily apixaban can be taken in the morning to improve adherence. - Lifestyle: Recommended starting a walking routine to address fatigue and promote weight loss. - Health Maintenance: Administered an influenza vaccine in the office. - The patient will proceed with the scheduled colonoscopy on the . - Labs: Plan to order further blood work, including cholesterol levels, at the next visit. - Follow-up: Recommended a follow-up appointment in six months for reassessment. Discussion Notes Patient Instructions - Continue taking all your medications as prescribed. - To make it easier to remember, you can take your bupropion, metoprolol, and statin in the morning. - Continue to take your blood thinner, apixaban, twice a day as prescribed. - Try to start walking regularly, as this can help with your energy levels and weight. - You received your flu shot today. - Please proceed with your scheduled colonoscopy on the . - We will check your cholesterol levels at your next visit. - Please schedule a follow-up appointment in six months.
[2025-09-16 11:40] VITALS: BP 120/64; PULSE 63; TEMP 36.2; O2SAT 96; BMI 31.7
--- OUTSIDE RECORDS SUMMARY | 2025-09-16 14:04 | XMS_ITS | Patient Health Record ---
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
== END 2025-09-16 11:54 | disposition home or self-care (01) ==
LOC: HO.HMCH 11:34
PROVIDERS: PCP Internal Medicine; Visit Provider Internal Medicine
DX: F33.2 Major depressive disorder, recurrent severe without psychotic features (principal)

== ENCOUNTER 2025-10-05 11:51 | Day surgery (SDC) | payer OTHER, SELFPAY ==
--- NOTE | 2025-10-01 10:02 | HO.ANESPROP2 ---
Documented by User: Denise Dallas NP 10/01/25 10:04 HPI - Anesthesia Eval Consult details Narrative: 60yo F for Colonoscopy Follows [facility] [place] Cardiology for: PAF (eliquis), Bicuspid aortic valve with moderate aortic regurgitation mild ascending aortic enlargement (annual echo) [facility] Active Problems Active Problems: All Active Problems Annual physical exam (Acute) Class 1 obesity with body mass index (BMI) of 31.0 to 31.9 in adult (Acute) Pure hypercholesterolemia, unspecified (Acute) Hyperlipidemia LDL goal <100 (Acute) Ascending aorta enlargement (Acute) Paroxysmal atrial fibrillation (Acute) Pelvic floor weakness (Acute) Cervical cancer screening (Acute) Well woman exam with routine gynecological exam (Acute) Influenza vaccine administered (Acute ~10/13/24) Colon cancer screening (Acute) Follow-up exam, 3-6 months since previous exam (Acute) Endogenous depression (Acute) Aortic regurgitation (Acute) Past Medical History Medical History (Updated 10/01/25 @ 14:24 by Eliza Meyer RN) PAF (paroxysmal atrial fibrillation) Class 1 obesity with body mass index (BMI) of 31.0 to 31.9 in adult Pure hypercholesterolemia, unspecified Hyperlipidemia LDL goal <100 Ascending aorta enlargement History of Papanicolaou smear of cervix (~02/10/25) Endogenous depression Aortic regurgitation Family History Family History Other Mental health disorder Substance use disorder Surgical History Surgical History (Updated 10/01/25 @ 14:23 by Eliza Meyer RN) History of colonoscopy (~08/21/19) Social History Social History Housing: House Alcohol intake: current Alcohol intake frequency: a few times a month Patient Tobacco Use Status: Former Tobacco user Tobacco use type: Cigarette e-Cigarette/Vaping Use: Never Used Second Hand Smoke Exposure: Yes Use of substances other than those prescribed or required for medical reasons: No Advance Directives: No Advance Directives Information Provided: Yes service: No Current occupational status: employed Cognitive needs: No Hearing needs: No Vision needs: Yes (Glasses) Meds Allergies Allergy/AdvReac Type Severity Reaction Status Date / Time No Known Allergies Allergy Verified 09/16/25 13:31 Exam Pertinent Lab Results Pertinent Lab Results: Laboratory Tests 03/17/25 09:55 WBC 6.0 Hgb 13.3 Hct 40.0 Plt Count 222 Sodium 142 Potassium 4.4 Chloride 111 H Carbon Dioxide 25 BUN 23 H Creatinine 0.97 Narrative Narrative: EKG 02/2025 NSR @ 68 ECHO 03/2025 Conclusions: - 1. Normal LV ejection fraction of 60 65% 2. Mildly dilated left atrium 3. Mtlo-[id number] aortic regurgitation 4. Mildly dilated ascending aorta 5. Normal RV systolic pressure 6. No pericardial effusion Assessment and Plan Assessment Anesthesia Assessment: Chart Reviewed Documented by User: Gomez Alonzo MD 10/05/25 15:01 [facility] Past Medical History Medical History (Updated 10/01/25 @ 14:24 by Eliza Meyer RN) PAF (paroxysmal atrial fibrillation) Class 1 obesity with body mass index (BMI) of 31.0 to 31.9 in adult Pure hypercholesterolemia, unspecified Hyperlipidemia LDL goal <100 Ascending aorta enlargement History of Papanicolaou smear of cervix (~02/10/25) Endogenous depression Aortic regurgitation Family History Family History Other Mental health disorder Substance use disorder Family history of problems with anesthesia: No Surgical History Surgical History (Updated 10/01/25 @ 14:23 by Eliza Meyer RN) History of colonoscopy (~08/21/19) History of Problems with Anesthesia: No Social History Social History Housing: House Alcohol intake: current Alcohol intake frequency: a few times a month Patient Tobacco Use Status: Former Tobacco user Tobacco use type: Cigarette e-Cigarette/Vaping Use: Never Used Second Hand Smoke Exposure: Yes Use of substances other than those prescribed or required for medical reasons: No Advance Directives: No Advance Directives Information Provided: Yes service: No Current occupational status: employed Cognitive needs: No Hearing needs: No Vision needs: Yes (Glasses) Meds Allergies Allergy/AdvReac Type Severity Reaction Status Date / Time No Known Allergies Allergy Verified 09/16/25 13:31 Exam Airway Mallampati Class: III TM Dist: <=3cm Neck ROM: Full Loose/Missing/Broken Teeth: No Heart: ok Lungs: ok Assessment and Plan Assessment Anesthesia Assessment: Anesthesia Plan Discussed Final Anesthetic Review Family History of Problems with Anesthesia: No History of Problems with Anesthesia: No NPO: Yes ASA Class: III Final Preanesthetic Review: No Changes in Pt Med Stat, Meds/Allgs Chart Reviewed, Consent Obtained/Reviewed and Anes Risks/Benef Reviewed Patient Risk: Intermediate Procedure Risk: Low Anesthetic Plan Anesthetic Plan: MAC: and Agree w/ Assess. and Plan Disposition: Standard PACU
[2025-10-01 14:27] VITALS: BMI 31.6
[2025-10-05 12:57] VITALS: BMI 31.8
[2025-10-05 13:07] VITALS: BP 117/50; PULSE 62; RESP 16; TEMP 37; O2SAT 97
[2025-10-05] MEDS: Lactated Ringers 1,000 ML 100 ML IVCONT (13:09)
--- NOTE | 2025-10-05 13:53 | MHC.SHP ---
Pre-Procedural Eval Section A - 24 Hr Update-Section A only Date of Service: 10/05/25 The patient is an INPATIENT: No The patient has been examined within 24 hours of the surgical procedure. The History & Physical has been completed within 30 days and I have reviewed it.: No Section B - Complete if H&P > 30 days Chief Complaint: Surveillance for colon polyps, FH of colon ca Relevant Family History (Specify if Yes): Yes Relevant Social History: Tobacco Use (Former smoker) Present Medications: see Short Stay Collaborative assessment Medical History: Significant History (PAF, hypercholesteremia, aortic regurgitation ) History of Previous Operations: Relevant previous surgery/procedure and date(s) (History of colonoscopy) Allergies: Allergies Allergy/AdvReac Type Severity Reaction Status Date / Time No Known Allergies Allergy Verified 09/16/25 13:31 Review of Systems Sugical H&P ROS: Negative: Constitution, Cardiovascular, Respiratory and Gastrointestinal Exam Surgical H&P Exam: Normal: Heart, Normal: Lungs, Normal: Extremities and Normal: Abdomen Plan Diagnosis/Plan: Unchanged I have reviewed the history and physical and performed a pertinent physical examination on my patient. No changes have occurred unless specified. Time Spent With Patient Time: Total time managing care of this patient today ____ minutes.
--- NOTE | 2025-10-05 14:47 | HO.OPN-COLON ---
Colonoscopy Operative Note Operative Note Date of Service: 10/05/25 Narrative: COLONOSCOPY TILL CECUM WITH SNARE POLYPECTOMY Pre-op diagnosis: Surveillance for colon polyps. Post-op diagnosis:? Colon polyps, Diverticulosis, hemorrhoids Endoscopist:? Matt Black MD Anesthesia:?MAC Consent: Indications for the procedure and potential complications of bleeding, perforation, reaction to medications and missed diagnosis were discussed with the patient and informed consent was obtained. Instrument: Olympus PCF H 190 L variable stiffness pediatric colonoscope Monitoring: Vital signs and clinical assessment, intermittent blood pressure monitoring, continuous EKG monitoring, Pulse oximetry and Carbon Dioxide monitoring were done throughout the procedure. Please see anesthesia flowsheet. Colon withdrawl time was 18 minutes. Procedure: The patient was placed in the left lateral decubitis position and pre-procedure medications were administered. After a digital rectal examination of the ano-rectum, the video colonoscope was inserted into the rectum and advanced through the colon to the cecum. The colonoscope was slowly withdrawn in a retrograde panoramic fashion and the colon mucosa was carefully examined including a retroflexed view of the rectum. Findings and interventions are described below. Procedure Difficulty: without difficulty Findings: Terminal Ileum: Not evaluated Cecum: Normal Ascending Colon: Normal Transverse Colon: Normal Descending Colon: Two 4-5 mm sessile polyps - removed with a cold snare. Sigmoid Colon: Mild diverticulosis Rectum: Normal Ano-rectum: Small internal hemorrhoids Colon preparation: Good after some irrigation. [place] Bowel Preparation Scale Right colon; 2 Transverse colon: 2 Left colon; 2 (0 = Unprepared colon segment with mucosa not seen due to solid stool that cannot be cleared. 1 = Portion of mucosa of the colon segment seen, but other areas of the colon segment not well seen due to staining, residual stool and/or opaque liquid. 2 = Minor amount of residual staining, small fragments of stool and/or opaque liquid, but mucosa of colon segment seen well. 3 = Entire mucosa of colon segment seen well with no residual staining, small fragments of stool or opaque liquid) Impression and Post Procedure Diagnosis: Colonoscopy Findings: Two small polyps were removed Mild diverticulosis seen in the sigmoid colon Small hemorrhoids on retroflexed exam. Plan: I will send a letter with biopsy results. Repeat Colonoscopy in 5 years if polyps are adenomatous and 10 year if polyps are hyperplastic. Above findings were reviewed with the patient and relevant handouts were given and the discharge area.
[2025-10-05 15:25] VITALS: BP 103/46; PULSE 57; RESP 18; TEMP 36.6; O2SAT 95
[2025-10-05 15:40] VITALS: BP 128/58; PULSE 58; RESP 15; O2SAT 100
[2025-10-05 15:55] VITALS: BP 124/63; PULSE 58; RESP 20; TEMP 36.7; O2SAT 100
== END 2025-10-05 16:20 | disposition home or self-care (01) ==
PROVIDERS: PCP Internal Medicine; Visit Provider Internal Medicine Gastroenterology
PROC: 0DJD8ZZ Inspection of Lower Intestinal Tract, Via Natural or Artificial Opening Endoscopic (ICD-10-PCS; CPT 45378; principal; 2025-10-05 13:50)
DX: Z12.11 Encounter for screening for malignant neoplasm of colon (principal); Z80.0 Family history of malignant neoplasm of digestive organs; Z86.0101 Personal history of adenomatous and serrated colon polyps; K57.30 Diverticulosis of large intestine without perforation or abscess without bleeding; K64.8 Other hemorrhoids; D12.4 Benign neoplasm of descending colon
CPT/HCPCS: 45385; 88305; J2003; J2704

== ENCOUNTER → 2025-10-05 11:51 | Outpatient (BNV) | payer OTHER, SELFPAY | PROVIDERS: PCP Internal Medicine; Visit Provider Internal Medicine Gastroenterology | DX: Z12.11 Encounter for screening for malignant neoplasm of colon (principal); K63.5 Polyp of colon; K57.30 Diverticulosis of large intestine without perforation or abscess without bleeding; K64.8 Other hemorrhoids | CPT/HCPCS: 45385 ==